=== PATIENT | male | born 1955 | race Caucasian/White ===

== ENCOUNTER 2017-01-09 07:37 | Emergency (ER) | payer MEDICARE, BC ==
[2017-01-09] MEDS ORDERED: KETOROLAC 30 MG/ML 1 ML VIAL IVP STA (08:04)
[2017-01-09] MEDS ORDERED: IPRATROPIUM-ALBUTEROL 3 ML NEB INHALATION STA (08:04)
--- NOTE | 2017-01-09 08:08 | ED ---
Neck Injury/Pain HPI - General Chief Complaint: Neck Pain/Injury Stated Complaint: Neck/back pain Time Seen by Provider: 01/09/17 07:50 Source: patient, family, RN notes reviewed Mode of arrival: wheelchair Limitations: physical limitation - History of Present Illness Initial Comments: This is a 61-year-old male with a history of cervical spinous fusion of C5 6 and 7) approximately 5 months ago who states he had the onset of neck pain about 2 AM this morning. He states he's been coughing he is unsure whether he coughed or twisted when he was in his chair where he sleeps up. He states he has intermittent spasms he states the pain since the surgery hasn't gotten a whole lot better after the first 2 weeks. He does have more motion in his upper extremities however. He denies any new deficits. He states currently the pain is about 5/10 sharp in nature this is what he normally runs daily. He denies any urinary or fecal incontinence any other complaints at this time. He has have a cough he has had some shortness of breath. He still is a smoker he does use CPAP. We did a long conversation regarding smoking cessation lasting 3.1 minutes. MD Complaint: neck pain, other - Related Data Home Medications Medication Instructions Recorded Confirmed DULoxetine HCL [Cymbalta] 30 mg PO DAILY 11/02/16 01/09/17 HYDROcodone/APAP 7.5-325MG [[place] 1 tab PO QID 11/02/16 01/09/17 7.5-325] Lovastatin [Mevacor] 40 mg PO HS 11/02/16 01/09/17 Pantoprazole Sodium [Protonix] 40 mg PO DAILY 11/02/16 01/09/17 Calcium Carbonate [Tums] 1,000 mg PO TID PRN 01/09/17 01/09/17 Fluticasone/Salmeterol [Advair 1 inhalation PO RT-BID 01/09/17 01/09/17 250-50 Diskus] Lisinopril [Zestril] 5 mg PO DAILY 01/09/17 01/09/17 Vitamin E 1,000 unit PO DAILY 01/09/17 01/09/17 Allergies Allergy/AdvReac Type Severity Reaction Status Date / Time Iodinated Contrast Media - Allergy Dyspnea Verified 01/09/17 08:17 Oral and Review of Systems ROS Statement: Those systems with pertinent positive or pertinent negative responses have been documented in the HPI. ROS Other: All systems not noted in ROS Statement are negative. Past Medical History Past Medical History: COPD, Hyperlipidemia, Hypertension Additional Past Medical History / Comment(s): chronic back and neck pain History of Any Multi-Drug Resistant Organisms: None Reported Past Surgical History: Back Surgery Additional Past Surgical History / Comment(s): NECK SURGERY. Past Psychological History: No Psychological Hx Reported Smoking Status: Current every day smoker Past Alcohol Use History: None Reported Past Drug Use History: None Reported General Exam - General Exam Comments Initial Comments: This is a well-developed well-nourished awake alert oriented 3 male Limitations: physical limitation General appearance: alert, in no apparent distress Head exam: Present: atraumatic, normocephalic, normal inspection Eye exam: Present: normal appearance, PERRL, EOMI. Absent: scleral icterus, conjunctival injection, periorbital swelling ENT exam: Present: normal exam, mucous membranes moist Neck exam: Present: normal inspection, other (Somewhat limited range of motion with the patient states this is his normal range). Absent: tenderness, meningismus, lymphadenopathy Respiratory exam: Present: wheezes, decreased breath sounds Cardiovascular Exam: Present: normal rhythm, tachycardia Extremities exam: Present: normal inspection, full ROM, normal capillary refill. Absent: tenderness, pedal edema, joint swelling, calf tenderness Back exam: Present: normal inspection. Absent: tenderness Neurological exam: Present: alert, oriented X3, CN II-XII intact Psychiatric exam: Present: normal affect, normal mood Skin exam: Present: warm, dry, intact, normal color. Absent: rash Course Vital Signs 01/09/17 01/09/17 01/09/17 07:44 08:17 08:25 Temperature 97.5 F L Pulse Rate 102 H 94 94 Respiratory 20 Rate Blood Pressure 106/62 O2 Sat by Pulse 96 Oximetry 01/09/17 09:05 Temperature 98.7 F Pulse Rate 86 Respiratory 18 Rate Blood Pressure 116/58 O2 Sat by Pulse 95 Oximetry Medical Decision Making - Medical Decision Making I did discuss findings with the patient has he is feeling somewhat better he'll be discharged she does have Motrin at home in addition to other pain medication and muscle relaxers he will start these again he is breathing better. - Lab Data Result diagrams: 01/09/17 08:30 01/09/17 08:30 Lab Results 01/09/17 01/09/17 Range/Units 08:30 08:30 WBC 7.9 (3.8-10.6) k/uL RBC 5.23 (4.30-5.90) m/uL Hgb 16.1 (13.0-17.5) gm/dL Hct 48.3 (39.0-53.0) % MCV 92.4 (80.0-100.0) fL MCH 30.7 (25.0-35.0) pg MCHC 33.2 (31.0-37.0) g/dL RDW 13.6 (11.5-15.5) % Plt Count 159 (150-450) k/uL Neutrophils % 80 % Lymphocytes % 10 % Monocytes % 7 % Eosinophils % 2 % Basophils % 0 % Neutrophils # 6.3 (1.3-7.7) k/uL Lymphocytes # 0.8 L (1.0-4.8) k/uL Monocytes # 0.5 (0-1.0) k/uL Eosinophils # 0.1 (0-0.7) k/uL Basophils # 0.0 (0-0.2) k/uL Sodium 139 (137-145) mmol/L Potassium 4.6 (3.5-5.1) mmol/L Chloride 100 (98-107) mmol/L Carbon Dioxide 27 (22-30) mmol/L Anion Gap 12 mmol/L BUN 15 (9-20) mg/dL Creatinine 1.08 (0.66-1.25) mg/dL Est GFR (MDRD) Af Amer >60 (>60 ml/min/1.73 sqM) Est GFR (MDRD) Non-Af >60 (>60 ml/min/1.73 sqM) Glucose 101 H (74-99) mg/dL Calcium 9.3 (8.4-10.2) mg/dL Magnesium 2.0 (1.6-2.3) mg/dL Total Bilirubin 0.7 (0.2-1.3) mg/dL AST 21 (17-59) U/L ALT 28 (21-72) U/L Alkaline Phosphatase 59 (38-126) U/L Total Protein 7.5 (6.3-8.2) g/dL Albumin 4.4 (3.5-5.0) g/dL - Radiology Data Radiology results: report reviewed (Imaging shows no acute findings.), image reviewed Disposition Clinical Impression: Cervical radiculopathy, Bronchospasm, acute Disposition: HOME SELF-CARE Condition: Good Instructions: Cervical Radiculopathy (ED), Bronchospasm (ED), How to Stop Smoking (ED)
[2017-01-09 08:49] LABS: Basophils % (A) 0 %; CH 31.2; CHCM 33.9; Eosinophils # (A) 0.1 k/uL (0-0.7); Eosinophils % (A) 2 %; HCT 48.3 % (39.0-53.0); HDW 2.36; HGB 16.1 gm/dL (13.0-17.5); Luc # (Auto) 0.16; Luc % (Auto) 2; Lymphocytes # (A) 0.8 k/uL (1.0-4.8); Lymphocytes % (A) 10 %; MCH 30.7 pg (25.0-35.0); MCHC 33.2 g/dL (31.0-37.0); MCV 92.4 fL (80.0-100.0); Mean Platelet Volume 8.2; Monocytes # (A) 0.5 k/uL (0-1.0); Monocytes % (A) 7 %; Neutrophils # (A) 6.3 k/uL (1.3-7.7); Neutrophils % (A) 80 %; RBC 5.23 m/uL (4.30-5.90); RDW 13.6 % (11.5-15.5); WBC 7.9 k/uL (3.8-10.6); WBC (Perox) 7.98
[2017-01-09 09:03] LABS: ALT 28 U/L (21-72); AST 21 U/L (17-59); Alkaline Phosphatase 59 U/L (38-126); Anion Gap 12 mmol/L; Blood Urea Nitrogen 15 mg/dL (9-20); Calcium 9.3 mg/dL (8.4-10.2); Carbon Dioxide 27 mmol/L (22-30); Chloride 100 mmol/L (98-107); Glucose 101 mg/dL (74-99); Non-African American GFR(MDRD) >60 (>60 ml/min/1.73 sqM); Potassium 4.6 mmol/L (3.5-5.1); Sodium 139 mmol/L (137-145); Total Bilirubin 0.7 mg/dL (0.2-1.3); Total Protein 7.5 g/dL (6.3-8.2)
--- NOTE | 2017-01-09 09:03 | XR ---
EXAMINATION TYPE: XR cervical spine comp DATE OF EXAM: 01/09/2017 8:51 AM COMPARISON: MRI 04/08/2016. HISTORY: 61-year-old male with pain TECHNIQUE: 6 views FINDINGS: Postsurgical changes of C4-C7 ACDF. Alignment is maintained with moderate disc/endplate degenerative change below the fusion at C7-T1. There appears to be heterotopic ossification posteriorly in the low er neck measuring up to 2.1 cm seen in retrospect on the MRI of 04/08/2016. Uncovertebral joint and facet arthropathy results in moderate bony spondylotic neuroforaminal narrowi ng on the right at C3-C4, C5-C6, and mild on the right at C4-C5 and C6-C7. On the left, no significant bony spondylotic neural foraminal narrowing is seen. Normal odontoid view. IMPRESSION: 1. Postsurgical changes of C4-C7 ACDF. There is disc/endplate degenerative change below the fusion at C7-T1 without malalignment. 2. Heterotopic ossification posteriorly in the lower cervical soft tissues was present in retrospect on the MRI of 04/08/2016. 3. Uncovertebral joint and facet arthropathy causing variable mild to moderate neuroforaminal narrowi ng on the right.
--- NOTE | 2017-01-09 09:04 | XR ---
EXAMINATION TYPE: XR chest 2V DATE OF EXAM: 01/09/2017 8:51 AM COMPARISON: None HISTORY: 61-year-old male with cough TECHNIQUE: PA and lateral views FINDINGS: The cardiomediastinal silhouette, aorta, and pulmonary vasculature are within normal limits. There is hyperinflation with mild interstitial prominence compatible with COPD. Focal opacity at the cardiac apex. No additional consolidation or pleural effusion. IMPRESSION: 1. COPD. 2. Focal opacity at the cardiac apex could represent prominent epicardial fat, lingular atelectasis, or early lingular infiltrate. Follow-up can be performed.
[2017-01-09 09:07] VITALS: TEMP 98.7
[2017-01-09 10:13] VITALS: BP 93/67; PULSE 83; RESP 20
== END 2017-01-09 10:13 | disposition home or self-care (01) ==
LOC: EC 07:37
DX: M54.12 Radiculopathy, cervical region (principal); J98.01 Acute bronchospasm; I10 Essential (primary) hypertension; J44.9 Chronic obstructive pulmonary disease, unspecified; E78.5 Hyperlipidemia, unspecified; F17.200 Nicotine dependence, unspecified, uncomplicated; Z79.51 Long term (current) use of inhaled steroids; Z79.891 Long term (current) use of opiate analgesic; Z79.899 Other long term (current) drug therapy; Z91.041 Radiographic dye allergy status; Z98.890 Other specified postprocedural states
CPT/HCPCS: 99284; 96374; 36415; 94640; 80053; 83735; 85025; 71020; 72050; J1885

== ENCOUNTER 2017-01-09 23:08 | Emergency (ER) | payer MEDICARE, BC ==
[2017-01-10] MEDS ORDERED: IPRATROPIUM-ALBUTEROL 3 ML NEB INHALATION STA (00:03)
[2017-01-10] MEDS ORDERED: methylPREDNISolone SOD SUCCI 125 MG/2 ML VIAL IV STA (00:03)
[2017-01-10] MEDS ORDERED: ONDANSETRON 4 MG/2 ML VIAL IVP STA (00:08)
[2017-01-10] MEDS ORDERED: HYDROmorphone 1 MG/ML 1 ML SYRINGE IVP STA (00:08)
[2017-01-10] MEDS ORDERED: LEVOFLOXACIN 500 MG TAB PO STA (00:13)
--- NOTE | 2017-01-10 01:41 | XR ---
EXAM: XR Lumbar Spine, 2 or 3 Views. CLINICAL HISTORY: Reason: Pain TECHNIQUE: Frontal and lateral views of the lumbar spine. COMPARISON: No relevant prior studies available. FINDINGS: Vertebrae: Mild rightward curvature centered at the L2-3 level. Vertebral body heights and alignment are maintained without acute fracture. Disc spaces: Prior L4-5 posterior pedicle screw and arnaud fusion and interposed disc spacer. There is mild disc space narrowing at L5-S1. Soft tissues: Small amounts of arterial vascular calcification are seen. Tiny focus of increased density anterior to the upper sacrum on the lateral view may be vascular or postsurgical, or even a small amount of retained barium within a colonic diverticulum. IMPRESSION: 1. No acute fracture or compression deformity, nor listhesis. 2. Additional findings include mild lumbar dextroscoliosis, and previous L4-5 posterior fusion, as above.
[2017-01-10 01:43] LABS: ABG HCO3 20 mmol/L (21-25); ABG PCO2 35 mmHg (35-45); ABG PH 7.38 (7.35-7.45); ABG PO2 135 mmHg (83-108)
[2017-01-10 01:44] LABS: ABG Base Excess -4.1 mmol/L; ABG TCO2 21 mmol/L (19-24)
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
[2017-01-10 02:31] VITALS: BP 124/89; PULSE 100; RESP 20; TEMP 98
== END 2017-01-10 02:31 | disposition home or self-care (01) ==
LOC: EC 23:08
DX: J44.1 Chronic obstructive pulmonary disease with (acute) exacerbation (principal); J44.0 Chronic obstructive pulmonary disease with (acute) lower respiratory infection; J45.909 Unspecified asthma, uncomplicated; J18.9 Pneumonia, unspecified organism; G89.4 Chronic pain syndrome; E78.5 Hyperlipidemia, unspecified; I10 Essential (primary) hypertension; F17.200 Nicotine dependence, unspecified, uncomplicated; Z79.51 Long term (current) use of inhaled steroids; Z79.899 Other long term (current) drug therapy; Z79.891 Long term (current) use of opiate analgesic; Z91.041 Radiographic dye allergy status
CPT/HCPCS: 99283 ×2; 96374 ×2; 96375 ×3; 99284; 36415 ×2; 94640 ×2; 36600; 85379; 80053; 82805; 83735; 85025; 87502; 71020; 72050; 72100; J2930; J2405; J1885; J1170

== ENCOUNTER → 2017-01-18 | Outpatient (CLI) | payer MEDICARE, BC ==
--- NOTE | 2017-01-18 16:59 | CT ---
EXAMINATION TYPE: CT chest wo con DATE OF EXAM: 01/18/2017 4:46 PM COMPARISON: NONE HISTORY: Cough, pneumonia, history of COPD. Difficulty breathing. CT DLP: 294.40 mGycm, Automated exposure control for dose reduction was used. CONTRAST: None TECHNIQUE: Axial images were obtained at 5 mm thick sections. Reconstructed images are reviewed on [employer] computer in the coronal plane. FINDINGS: Supraclavicular region appears unremarkable. Subglottic airway is unremarkable. No suspicious lung nodules or focal infiltrates are present. Emphysematous changes are present. No omer spicious infiltrates are evident. Tiny nodules within the lingula measuring 0.5 cm. Series 4 image 25 . A 0.3 cm nodules in the superior segment left lower lobe. Series 4 image 35. No enlarged mediastinal or hilar adenopathy is evident. Few scattered small shotty lymph nodes with in the mediastinum The ascending aorta diameter at the level of the main pulmonary artery is 3.5 cm. The main pulmonary artery diameter at the bifurcation is 1.[address] sections are obtained through the upper abdomen. Abdomen is essentially unremarkable. Smal l hiatal hernia is present. IMPRESSIONS: 1. Couple of small subcentimeter nodules left lung discussed above. Follow-up exam in 6 months is rec ommended to confirm stability. 2. COPD.
== END | disposition home or self-care (01) ==
LOC: RADCTMAIN 16:17
PROVIDERS: ATTEND Internal Medicine Sleep Medicine
DX: R91.8 Other nonspecific abnormal finding of lung field (principal); J44.9 Chronic obstructive pulmonary disease, unspecified; J96.21 Acute and chronic respiratory failure with hypoxia
CPT/HCPCS: 71250

== ENCOUNTER 2017-01-25 22:22 | Inpatient (IN) | payer MEDICARE, BC ==
[2017-01-25] MEDS ORDERED: IPRATROPIUM-ALBUTEROL 3 ML NEB INHALATION STA (22:36)
[2017-01-25] MEDS ORDERED: SODIUM CHLORIDE 0.9% 500 ML IV ONE (22:36)
[2017-01-25 22:51] LABS: Basophils # (A) 0.1 k/uL (0-0.2); Basophils % (A) 1 %; CH 31.1; CHCM 33.3; Eosinophils % (A) 6 %; HCT 46.8 % (39.0-53.0); HDW 2.41; HGB 15.5 gm/dL (13.0-17.5); Luc # (Auto) 0.49; Luc % (Auto) 3; Lymphocytes # (A) 4.1 k/uL (1.0-4.8); Lymphocytes % (A) 28 %; MCH 31.2 pg (25.0-35.0); MCHC 33.2 g/dL (31.0-37.0); Mean Platelet Volume 8.7; Monocytes # (A) 0.8 k/uL (0-1.0); Monocytes % (A) 5 %; Neutrophils # (A) 8.5 k/uL (1.3-7.7); Neutrophils % (A) 57 %; RBC 4.98 m/uL (4.30-5.90); RDW 13.5 % (11.5-15.5); WBC 14.9 k/uL (3.8-10.6); WBC (Perox) 14.46
[2017-01-25 22:59] LABS: ALT 34 U/L (21-72); AST 27 U/L (17-59); Alkaline Phosphatase 54 U/L (38-126); Anion Gap 11 mmol/L; Blood Urea Nitrogen 10 mg/dL (9-20); Calcium 9.1 mg/dL (8.4-10.2); Carbon Dioxide 25 mmol/L (22-30); Chloride 105 mmol/L (98-107); Glucose 112 mg/dL (74-99); Non-African American GFR(MDRD) >60 (>60 ml/min/1.73 sqM); Potassium 4.7 mmol/L (3.5-5.1); Sodium 141 mmol/L (137-145); Total Bilirubin 0.7 mg/dL (0.2-1.3); Total Protein 7.4 g/dL (6.3-8.2)
[2017-01-25 23:00] LABS: Prothrombin Time 10.5 sec (9.0-12.0)
--- NOTE | 2017-01-25 23:02 | ED ---
SOB HPI - General Stated Complaint: LYLE Time Seen by Provider: 01/25/17 22:35 Source: patient, EMS Mode of arrival: EMS Limitations: no limitations - History of Present Illness Initial Comments: This is a 61-year-old male with a history of COPD who presents emergency department for shortness of breath. He states that he is being treated for pneumonia with Levaquin currently. He states that over the last few days he's been having worsening shortness of breath. His been using his inhalers at home without any relief. Today just got to the point where he could not stay home and decided to come emergency department. He denies any chest pain. He does admit to some cough. No lower [place] swelling. No fevers or chills. No other complaints. - Related Data Home Medications Medication Instructions Recorded Confirmed DULoxetine HCL [Cymbalta] 30 mg PO DAILY 11/02/16 01/25/17 HYDROcodone/APAP 7.5-325MG [[place] 1 tab PO QID PRN 11/02/16 01/25/17 7.5-325] Lovastatin [Mevacor] 40 mg PO DAILY 11/02/16 01/25/17 Pantoprazole Sodium [Protonix] 40 mg PO DAILY 11/02/16 01/25/17 Calcium Carbonate [Tums] 1,000 mg PO TID PRN 01/09/17 01/25/17 Fluticasone/Salmeterol [Advair 1 puff INHALATION RT-BID 01/09/17 01/25/17 250-50 Diskus] Lisinopril [Zestril] 5 mg PO DAILY 01/09/17 01/25/17 Vitamin E 1,000 unit PO DAILY 01/09/17 01/25/17 Albuterol Sulfate [Proair Hfa] 2 puff INHALATION RT-QID PRN 01/25/17 01/25/17 Diazepam [Valium] 5 mg PO TID PRN 01/25/17 01/25/17 Fluticasone Nasal [place] [Flonase 2 spr EA NOSTRIL DAILY 01/25/17 01/25/17 Nasal [place]] Previous Rx's Medication Instructions Recorded HYDROmorphone [Dilaudid] 2 mg PO Q8H PRN #15 tab 01/10/17 Levofloxacin [Levaquin] 500 mg PO DAILY #7 tab 01/10/17 Allergies Allergy/AdvReac Type Severity Reaction Status Date / Time Iodinated Contrast Media - Allergy Dyspnea Verified 01/25/17 22:58 Oral and Review of Systems ROS Statement: Those systems with pertinent positive or pertinent negative responses have been documented in the HPI. ROS Other: All systems not noted in ROS Statement are negative. Past Medical History Past Medical History: COPD, Hyperlipidemia, Hypertension Additional Past Medical History / Comment(s): chronic back and neck pain History of Any Multi-Drug Resistant Organisms: None Reported Past Surgical History: Back Surgery Additional Past Surgical History / Comment(s): NECK SURGERY. Past Psychological History: No Psychological Hx Reported Smoking Status: Former smoker Past Alcohol Use History: None Reported Past Drug Use History: None Reported General Exam - General Exam Comments Initial Comments: Constitutional: Awake alert the patient appears in respiratory distress Head: Normocephalic atraumatic Eyes: no conjunctival injection No scleral icterus EOMI Neck: There is some left-sided JVD Supple Heart: Regular rate rhythm normal S1-S2 no murmurs Lungs: There is coarse breath sounds bilaterally with expiratory wheezing, the patient appears to be in respiratory distress with accessory muscle usage No rales Abdomen: Soft nondistended nontender Extremities: Non edematous DP pulses intact Radial pulses intact Neuro: A&Ox3 No focal neurologic deficits Psych: Appropriate mood and affect Limitations: no limitations Course Vital Signs 01/25/17 01/25/17 01/25/17 22:39 22:47 23:06 Temperature 97.0 F L Pulse Rate 126 H 124 H 114 H Respiratory 45 H 30 H Rate Blood Pressure 152/81 137/78 O2 Sat by Pulse 96 96 Oximetry 01/25/17 01/25/17 23:29 23:30 Temperature Pulse Rate 112 H 126 H Respiratory 31 H Rate Blood Pressure 124/92 O2 Sat by Pulse 98 Oximetry - Reevaluation(s) Reevaluation #1: 01/25/17 23:02 EKG showing sinus tachycardia with a rate of 129. No ST segment changes or T- wave inversions. QTC is 468. Other intervals are normal. No ectopy. Medical Decision Making - Medical Decision Making This is a 7-year-old male with history of severe came in for respiratory distress. He is much improved now on BiPAP. Chest x-ray does not show pneumonia. He did have diffuse wheezing on exam arrival and I believe that his symptoms are due to COPD exacerbation. Labwork was reviewed and most unremarkable. He was started on Levaquin. I'm going to admit him to the hospital for steroids and antibiotics and breathing treatments. Patient agrees to this. Dr. Gardner accepts the admission. - Lab Data Result diagrams: 01/25/17 22:30 01/25/17 22:30 Lab Results 01/25/17 01/25/17 01/25/17 Range/Units 22:30 22:30 22:30 WBC 14.9 H (3.8-10.6) k/uL RBC 4.98 (4.30-5.90) m/uL Hgb 15.5 (13.0-17.5) gm/dL Hct 46.8 (39.0-53.0) % MCV 94.0 (80.0-100.0) fL MCH 31.2 (25.0-35.0) pg MCHC 33.2 (31.0-37.0) g/dL RDW 13.5 (11.5-15.5) % Plt Count 209 (150-450) k/uL Neutrophils % 57 % Lymphocytes % 28 % Monocytes % 5 % Eosinophils % 6 % Basophils % 1 % Neutrophils # 8.5 H (1.3-7.7) k/uL Lymphocytes # 4.1 (1.0-4.8) k/uL Monocytes # 0.8 (0-1.0) k/uL Eosinophils # 1.0 H (0-0.7) k/uL Basophils # 0.1 (0-0.2) k/uL PT (9.0-12.0) sec INR (<1.1) APTT (22.0-30.0) sec Sodium 141 (137-145) mmol/L Potassium 4.7 (3.5-5.1) mmol/L Chloride 105 (98-107) mmol/L Carbon Dioxide 25 (22-30) mmol/L Anion Gap 11 mmol/L BUN 10 (9-20) mg/dL Creatinine 1.23 (0.66-1.25) mg/dL Est GFR (MDRD) Af Amer >60 (>60 ml/min/1.73 sqM) Est GFR (MDRD) Non-Af >60 (>60 ml/min/1.73 sqM) Glucose 112 H (74-99) mg/dL Plasma Lactic Acid Jeff 0.9 (0.7-2.0) mmol/L Calcium 9.1 (8.4-10.2) mg/dL Magnesium 2.0 (1.6-2.3) mg/dL Total Bilirubin 0.7 (0.2-1.3) mg/dL AST 27 (17-59) U/L ALT 34 (21-72) U/L Alkaline Phosphatase 54 (38-126) U/L Troponin I (0.000-0.034) ng/mL NT-Pro-B Natriuret Pep pg/mL Total Protein 7.4 (6.3-8.2) g/dL Albumin 4.2 (3.5-5.0) g/dL Influenza Type A RNA (Not Detectd) Influenza Type B (PCR) (Not Detectd) 01/25/17 01/25/17 01/25/17 Range/Units 22:30 22:30 22:30 WBC (3.8-10.6) k/uL RBC (4.30-5.90) m/uL Hgb (13.0-17.5) gm/dL Hct (39.0-53.0) % MCV (80.0-100.0) fL MCH (25.0-35.0) pg MCHC (31.0-37.0) g/dL RDW (11.5-15.5) % Plt Count (150-450) k/uL Neutrophils % % Lymphocytes % % Monocytes % % Eosinophils % % Basophils % % Neutrophils # (1.3-7.7) k/uL Lymphocytes # (1.0-4.8) k/uL Monocytes # (0-1.0) k/uL Eosinophils # (0-0.7) k/uL Basophils # (0-0.2) k/uL PT 10.5 (9.0-12.0) sec INR 1.0 (<1.1) APTT 24.0 (22.0-30.0) sec Sodium (137-145) mmol/L Potassium (3.5-5.1) mmol/L Chloride (98-107) mmol/L Carbon Dioxide (22-30) mmol/L Anion Gap mmol/L BUN (9-20) mg/dL Creatinine (0.66-1.25) mg/dL Est GFR (MDRD) Af Amer (>60 ml/min/1.73 sqM) Est GFR (MDRD) Non-Af (>60 ml/min/1.73 sqM) Glucose (74-99) mg/dL Plasma Lactic Acid Jeff (0.7-2.0) mmol/L Calcium (8.4-10.2) mg/dL Magnesium (1.6-2.3) mg/dL Total Bilirubin (0.2-1.3) mg/dL AST (17-59) U/L ALT (21-72) U/L Alkaline Phosphatase (38-126) U/L Troponin I <0.012 (0.000-0.034) ng/mL NT-Pro-B Natriuret Pep 56 pg/mL Total Protein (6.3-8.2) g/dL Albumin (3.5-5.0) g/dL Influenza Type A RNA (Not Detectd) Influenza Type B (PCR) (Not Detectd) 01/25/17 Range/Units 22:30 WBC (3.8-10.6) k/uL RBC (4.30-5.90) m/uL Hgb (13.0-17.5) gm/dL Hct (39.0-53.0) % MCV (80.0-100.0) fL MCH (25.0-35.0) pg MCHC (31.0-37.0) g/dL RDW (11.5-15.5) % Plt Count (150-450) k/uL Neutrophils % % Lymphocytes % % Monocytes % % Eosinophils % % Basophils % % Neutrophils # (1.3-7.7) k/uL Lymphocytes # (1.0-4.8) k/uL Monocytes # (0-1.0) k/uL Eosinophils # (0-0.7) k/uL Basophils # (0-0.2) k/uL PT (9.0-12.0) sec INR (<1.1) APTT (22.0-30.0) sec Sodium (137-145) mmol/L Potassium (3.5-5.1) mmol/L Chloride (98-107) mmol/L Carbon Dioxide (22-30) mmol/L Anion Gap mmol/L BUN (9-20) mg/dL Creatinine (0.66-1.25) mg/dL Est GFR (MDRD) Af Amer (>60 ml/min/1.73 sqM) Est GFR (MDRD) Non-Af (>60 ml/min/1.73 sqM) Glucose (74-99) mg/dL Plasma Lactic Acid Jeff (0.7-2.0) mmol/L Calcium (8.4-10.2) mg/dL Magnesium (1.6-2.3) mg/dL Total Bilirubin (0.2-1.3) mg/dL AST (17-59) U/L ALT (21-72) U/L Alkaline Phosphatase (38-126) U/L Troponin I (0.000-0.034) ng/mL NT-Pro-B Natriuret Pep pg/mL Total Protein (6.3-8.2) g/dL Albumin (3.5-5.0) g/dL Influenza Type A RNA Not Detected (Not Detectd) Influenza Type B (PCR) Not Detected (Not Detectd) Disposition Clinical Impression: COPD exacerbation Disposition: ADMITTED IP TO THIS HOSP Condition: Stable
[2017-01-25] MEDS ORDERED: LEVOFLOXACIN 750MG-D5W PMX 750 MG in DEXTROSE/WATER 1 150ML.BAG IVPB STA (23:28)
[2017-01-25] MEDS ORDERED: MORPHINE SULFATE 4 MG/ML SYRINGE IVP STA (23:28)
--- NOTE | 2017-01-25 23:45 | XR ---
EXAM: XR Chest, 1 View. CLINICAL HISTORY: Pain. TECHNIQUE: Frontal view of the chest. COMPARISON: CT dated 01/13/2017 and CXR dated 01/09/2017. FINDINGS: Lungs: Hyperlucent and hyperinflated lungs compatible with COPD. Mild basilar atelectasis. Mild prominence of interstitial markings in the mid to lower lungs. No evidence of focal consolidation. Pleural space: No pleural effusion or pneumothorax. Heart: Normal cardiac silhouette size. Mediastinum: No mediastinal widening. Bones/joints: Stable osseous structures. Orthopedic hardware projecting over the lower cervical spine. IMPRESSION: 1. Mild basilar atelectasis and mild prominence of interstitial markings in the mid to lower lungs. No focal consolidation. 2. COPD. 3. No pleural effusion or pneumothorax. 4. Normal cardiac silhouette size.
[2017-01-26] MEDS ORDERED: IPRATROPIUM-ALBUTEROL 3 ML NEB INHALATION PRN ×2 (00:12→20:45)
[2017-01-26 01:44] VITALS: BMI 25.0
[2017-01-26] MEDS: MORPHINE SULFATE 4 MG/ML SYRINGE IVP PRN ×3 (01:48→22:03)
[2017-01-26] MEDS: SODIUM CHLORIDE 0.9% 1,000 ML IV SCH ×3 (01:57→22:01)
[2017-01-26 03:23] LABS: ABG PCO2 44 mmHg (35-45); ABG PH 7.34 (7.35-7.45)
[2017-01-26 03:24] LABS: ABG Base Excess -1.9 mmol/L; ABG HCO3 23 mmol/L (21-25); ABG PO2 87 mmHg (83-108); ABG TCO2 24 mmol/L (19-24)
[2017-01-26] MEDS: methylPREDNISolone SOD SUCCI 125 MG/2 ML VIAL IV SCH ×2 (06:28→11:58)
[2017-01-26] MEDS: SYMBICORT 80-4.5 MCG INHALER INHALATION SCH ×2 (08:35→20:31)
[2017-01-26] MEDS: PANTOPRAZOLE 40 MG TABLET PO SCH (09:00)
[2017-01-26] MEDS: ATORVASTATIN 10 MG TAB PO SCH (09:00)
[2017-01-26] MEDS: LISINOPRIL 5 MG TAB PO SCH (09:00)
[2017-01-26] MEDS: DULoxetine HCL 30 MG CAPSULE.DR PO SCH (09:00)
[2017-01-26] MEDS ORDERED: HYDROmorphone 2 MG TAB PO PRN (10:38)
[2017-01-26] MEDS ORDERED: HYDROcodone/APAP 7.5-325MG 1 EACH TAB PO PRN (10:38)
[2017-01-26] MEDS ORDERED: DIAZEPAM 5 MG TAB PO PRN (10:38)
[2017-01-26] MEDS: IPRATROPIUM-ALBUTEROL 3 ML NEB INHALATION SCH ×3 (11:34→20:31)
[2017-01-26] MEDS: BACLOFEN 10 MG TAB PO SCH ×3 (15:51→22:30)
[2017-01-26] MEDS: HYDROcodone/APAP 5-325MG 1 EACH TAB PO SCH ×2 (15:52→19:18)
--- NOTE | 2017-01-26 16:29 | HP ---
DATE OF ADMISSION: 01/26/2017 PRESENTING COMPLAINT: Short of breath. HISTORY OF PRESENTING COMPLAINT: Pleasant 61-year-old patient of Dr. Alcantara, whose chronic stable medical conditions include hypertension, hyperlipidemia, anxiety. The patient had cervical spine and lower back surgery quite some time ago and keeps getting spasms of back pain. When he gets that he becomes more and more short of breath and wheezing. Patient additionally at the same time until about two weeks had been smoking. Also presents with worsening short of breath, wheezing, slight cough. No fever. Appetite is preserved. is at the bedside. With breathing treatments patient does feel better. Patient's getting about is limited. Has been sitting up in a chair. Cervical spine surgery was done was about 5 weeks and h has been pretty much been sitting up in a chair, because of back spasms. REVIEW OF SYSTEMS: CONSTITUTIONAL: Tired. HEENT: None. RESPIRATORY: As above. CARDIOVASCULAR: None. GASTROINTESTINAL: None. GENITOURINARY: None. MUSCULOSKELETAL: Pain in the neck and lower back. DERMATOLOGICAL: None. HEMATOLOGICAL: None. LYMPHATIC: None. PSYCHIATRY: Anxiety. NEUROLOGICAL: Spasms. Past medical history of COPD, hypertension, hyperlipidemia, back pain, anxiety. PAST SURGICAL HISTORY: Neck surgery, lower back surgery. SOCIAL HISTORY: Smoked a pack a day for close to 40 years, smoked more than that up to 3 weeks ago. Patient is not working anymore. . FAMILY HISTORY: Patient is adopted. HOME MEDICATIONS: 1. Vitamin E 1000 units a day. 2. Protonix 40 mg a day. 3. Mevacor 40 mg a day. 4. Zestril 5 mg a day. 5. Levaquin 500 mg a day. 6. Dilaudid 2 mg q.8 p.r.n. 7. [place]aview 7.5, 1 tablets q.i.d. p.r.n. 8. Advair 250/50, 1 puff b.i.d. 9. Flonase 2 sprays each nostril daily. 10. Valium 5 mg p.o. daily p.r.n. 11. Cymbalta 100 mg p.o. daily. 12. TUMs 1000 mg p.o. t.i.d. p.r.n. 13. ProAir 2 puffs q.i.d. p.r.n. ALLERGIES TO IV CONTRAST DYE. On examination: Vital signs on presentation: Temperature 97, pulse 126, respirations 45, blood pressure 150/81, pulse ox 96% on 3-L. GENERAL APPEARANCE: Average build, sitting up. Anxious -appearing. EYES: Pupils equal. Conjunctivae normal. HEENT: Oral cavity normal. NECK: JVD not raised. Mass not palpable. RESPIRATORY: Effort increased. LUNGS: Diminished breath sounds. Prolonged expiration wheezing. CARDIOVASCULAR: First and second sounds normal. No edema. ABDOMEN: Soft, nontender. Liver and spleen not palpable. LYMPHATIC: No lymph node palpable in neck or axillae. PSYCHIATRY: Alert and oriented x3. Mood and affect normal. NEUROLOGICAL: Pupils equal. Cranial nerves grossly intact. Power and sensation grossly intact. INVESTIGATIONS: White count 14.9, hemoglobin 13.5. Potassium 4.7, BUN and creatinine are normal. Influenza is negative. EKG: Sinus tachycardia with poor tracing. Chest x-ray shows hyperinflation, prominent pulmonary arteries, some chronic changes. ASSESSMENT: 1. Acute severe chronic obstructive pulmonary disease exacerbation in a smoker. 2. Chronic nicotine dependence. Patient active cigarette smoker, trying to quit. 3. Severe muscle spasms from spinal surgery and uncontrolled pain. 4. Anxiety, not otherwise specified. 5. Hyperlipidemia. 6. Essential hypertension. PLAN: Patient is put on nebulized bronchodilators, IV steroids. For better pain control will put the patient on baclofen 5 mg q.i.d., naproxen 500 mg b.i.d. and also Seaview 5 around the clock. Care was discussed with the patient and in detail about the importance of smoking sensation. Given nicotine patch. Patient also told about pulmonary toileting and pulmonary rehab. Care was discussed in detail with patient's .
[2017-01-26] MEDS ORDERED: CALCIUM CARBONATE 500 MG CHEWABLE PO PRN (18:35)
[2017-01-26] MEDS: NAPROXEN 250 MG TAB PO SCH ×2 (19:13→22:31)
[2017-01-26] MEDS: LEVOFLOXACIN 500 MG TAB PO SCH (22:00)
[2017-01-26] MEDS: methylPREDNISolone SOD SUCCI 40 MG/ML 1 ML VIAL IV SCH (23:50)
[2017-01-27] MEDS: HYDROcodone/APAP 5-325MG 1 EACH TAB PO SCH ×5 (03:31→23:19)
[2017-01-27] MEDS: SODIUM CHLORIDE 0.9% 1,000 ML IV SCH (06:29)
[2017-01-27] MEDS: methylPREDNISolone SOD SUCCI 40 MG/ML 1 ML VIAL IV SCH ×3 (08:01→23:20)
[2017-01-27] MEDS: ATORVASTATIN 10 MG TAB PO SCH (08:01)
[2017-01-27] MEDS: LISINOPRIL 5 MG TAB PO SCH (08:02)
[2017-01-27] MEDS: DULoxetine HCL 30 MG CAPSULE.DR PO SCH (08:02)
[2017-01-27] MEDS: BACLOFEN 10 MG TAB PO SCH ×4 (08:02→21:14)
[2017-01-27] MEDS: NAPROXEN 250 MG TAB PO SCH ×2 (08:02→21:13)
[2017-01-27] MEDS: PANTOPRAZOLE 40 MG TABLET PO SCH (08:03)
[2017-01-27] MEDS: SYMBICORT 80-4.5 MCG INHALER INHALATION SCH ×2 (08:24→21:11)
[2017-01-27] MEDS: IPRATROPIUM-ALBUTEROL 3 ML NEB INHALATION SCH ×4 (08:24→21:11)
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
[2017-01-27] MEDS: HYDROcodone/APAP 5-325MG 1 EACH TAB PO PRN ×2 (16:23→21:14)
--- NOTE | 2017-01-27 17:26 | PN ---
DATE OF SERVICE: 01/27/2017 INTERVAL HISTORY: Mr. Sosa is a 61-year-old patient with past medical history of hypertension, hyperlipidemia, coming in with a chief complaint of difficulty in breathing when he has some muscle spasms. The patient states that he has had cervical spine and low back surgery sometime back and since then has spasms of his neck and back and when he has the spasms he has difficulty in breathing and so he came in to the hospital for further evaluation. Patient has been evaluated by pulmonary services and he has been started on breathing treatments and steroids showed significant improvement in his breathing, but the main concern is that his spasms aggravate his difficulty in breathing so the patient has been started on baclofen and he states that it showed significant improvement in his spasm as well as breathing. REVIEW OF SYSTEMS: CONSTITUTIONAL: Denies having fever, chills, or rigors. RESPIRATORY: No cough. No difficulty in breathing. CARDIAC: No chest pain, no palpitations. GI: No abdominal pain, nausea, vomiting, or diarrhea. Patient's medications have been reviewed. He is on [place], albuterol, Lipitor, baclofen, Symbicort, Cymbalta, levofloxacin, Zestril, Solu-Medrol, morphine and Protonix. On examination, patient's vital signs: Temperature 96.1, heart rate 84, respiratory rate 20, blood pressure 118/74, saturating at 90% on room air. GENERAL EXAMINATION: Patient appears to be no acute distress. He keeps talking about his spasms and that his Baclofen has been helping him. EYES: Pupils round and reactive. No pallor. No icterus. NECK: No JVD. No thyromegaly. CARDIOVASCULAR: S1, S2 heard. RESPIRATORY: Bilateral breath sounds are positive. No wheezes or crackles. GI: Abdomen is soft, nontender. Bowel sounds positive. EXTREMITIES: No edema. No cyanosis, no clubbing. ROTARY DRIER: Alert, awake, oriented x3. PSYCHIATRIC: Appropriate mood and affect. MUSCULOSKELETAL: No joint swellings or deformities. The patient has history of scoliosis, status post back surgery done few weeks back. Patient's labs: No new labs from this morning. Labs from yesterday within normal limits. ASSESSMENT AND PLAN: 1. Acute exacerbation of chronic obstructive pulmonary disease. 2. Severe muscle spasms, status post spinal surgery and uncontrolled pain. 3. Chronic nicotine dependence. 4. Anxiety. 5. Hyperlipidemia. 6. Essential hypertension. 7. History of scoliosis. 8. Chronic neck pain. 9. Chronic low back pain. 10. History of sleep apnea on CPAP at night. PLAN: The plan is to continue the patient on bronchodilators, IV steroids. Patient has been on Levaquin due to his recent history of having pneumonia, so we will continue with it for now and continue with the current pain management and baclofen for his muscle spasms. The treatment care plan was discussed in detail with the patient and his who is at the bedside. NADIR
[2017-01-27] MEDS: LEVOFLOXACIN 500 MG TAB PO SCH (21:14)
[2017-01-28] MEDS: MORPHINE SULFATE 4 MG/ML SYRINGE IVP PRN (01:47)
[2017-01-28] MEDS: HYDROcodone/APAP 5-325MG 1 EACH TAB PO SCH ×4 (05:27→23:16)
[2017-01-28 06:26] LABS: Basophils % (A) 0 %; CH 30.5; CHCM 33.3; Eosinophils % (A) 0 %; HCT 40.8 % (39.0-53.0); HDW 2.32; HGB 13.6 gm/dL (13.0-17.5); Luc % (Auto) 1; Lymphocytes # (A) 0.9 k/uL (1.0-4.8); Lymphocytes % (A) 6 %; MCH 30.6 pg (25.0-35.0); MCHC 33.3 g/dL (31.0-37.0); MCV 92.1 fL (80.0-100.0); Mean Platelet Volume 7.9; Monocytes # (A) 0.4 k/uL (0-1.0); Monocytes % (A) 3 %; Neutrophils # (A) 13.7 k/uL (1.3-7.7); Neutrophils % (A) 91 %; RBC 4.43 m/uL (4.30-5.90); RDW 13.5 % (11.5-15.5); WBC 15.1 k/uL (3.8-10.6); WBC (Perox) 14.86
[2017-01-28 06:42] LABS: Anion Gap 9 mmol/L; Blood Urea Nitrogen 22 mg/dL (9-20); Calcium 9.7 mg/dL (8.4-10.2); Carbon Dioxide 28 mmol/L (22-30); Chloride 101 mmol/L (98-107); Glucose 112 mg/dL (74-99); Non-African American GFR(MDRD) >60 (>60 ml/min/1.73 sqM); Potassium 4.5 mmol/L (3.5-5.1); Sodium 138 mmol/L (137-145)
[2017-01-28] MEDS: ATORVASTATIN 10 MG TAB PO SCH (08:39)
[2017-01-28] MEDS: PANTOPRAZOLE 40 MG TABLET PO SCH (08:39)
[2017-01-28] MEDS: LISINOPRIL 5 MG TAB PO SCH (08:40)
[2017-01-28] MEDS: DULoxetine HCL 30 MG CAPSULE.DR PO SCH (08:40)
[2017-01-28] MEDS: NAPROXEN 250 MG TAB PO SCH ×2 (08:40→21:53)
[2017-01-28] MEDS: BACLOFEN 10 MG TAB PO SCH ×4 (08:41→21:55)
[2017-01-28] MEDS: methylPREDNISolone SOD SUCCI 40 MG/ML 1 ML VIAL IV SCH ×3 (08:43→23:17)
[2017-01-28] MEDS: IPRATROPIUM-ALBUTEROL 3 ML NEB INHALATION SCH ×4 (08:48→19:29)
[2017-01-28] MEDS: SYMBICORT 80-4.5 MCG INHALER INHALATION SCH ×2 (08:48→19:27)
[2017-01-28] MEDS: HYDROcodone/APAP 5-325MG 1 EACH TAB PO PRN (08:51)
--- NOTE | 2017-01-28 12:05 | P.PN ---
Subjective 61-year-old male patient with known history of COPD and obstructive sleep apnea who is coming in for worsening shortness of breath. The patient also has chronic neck and back pain. He was having excessive cramping of his neck and upper chest area which contributed to his shortness of breath. He had no chest pain. No cough or sputum production. No fever chills or night sweats. No angina. No swelling in lower extremities. Chest x-ray is consistent with COPD. CAT scan of the chest that was done approximately 10 days ago showed some nonspecific pulmonary nodules which are essentially noncancer. They need to be further followed up. Specifically, there are couple of small subcentimeter rug layer on the left the largest measuring 5 mm in size and the lingula and other smaller nodules and it appears segment of the left lower lobe without any significant mediastinal lymphadenopathy. Clinically the patient is doing better. He is currently on bronchodilators and systemic steroids and IV Solu Medrol has been tapered down to 40 mg every 8 hours. He is on Advair as maintenance on outpatient basis in addition to Ventolin rescue inhaler when necessary. On 01/28/2017, the patient is less short of breath. His emanating in the hallway. His COPD exacerbation is slowly improving. No chest pain. No angina. No swelling lower extremities. No other complaints otherwise for now. The patient remains on DuoNeb neb last treatment [id number] in addition to IV Solu-Medrol. As it has been his outpatient maintenance medication regarding his COPD. Objective - Vital Signs Vital signs: Vital Signs Temp 97.2 F L 01/28/17 08:00 Pulse 84 01/28/17 11:53 Resp 18 01/28/17 08:00 BP 90/53 01/28/17 08:00 Pulse Ox 93 L 01/28/17 08:00 Intake & Output 01/27/17 01/28/17 01/28/17 18:59 06:59 18:59 Intake Total 600 240 Balance 600 240 Weight 78 kg Intake: Oral 600 240 Other: Voiding Method Urinal Toilet Toilet Urinal Urinal # Voids 1 2 1 - Exam Head exam was generally normal. There was no scleral icterus or corneal arcus. Mucous membranes were moist.Neck was supple and without jugular venous distension, thyromegaly, or carotid bruits. Carotids were easily palpable bilaterally. There was no adenopathy.lung sounds are diminished bilaterally along with that there is scattered expiratory wheezes throughout the lung bridges and some prolongation of expiratory phase of breathing.Cardiac exam revealed the PMI to be normally situated and sized. The rhythm was regular and no extrasystoles were noted during several minutes of auscultation. The first and second heart sounds were normal and physiologic splitting of the second heart sound was noted. There were no murmurs, rubs, clicks, or gallops.Abdominal exam revealed normal bowel sounds. The abdomen was soft, non- tender, and without masses, organomegaly, or appreciable enlargement of the abdominal aorta.Examination of the extremities revealed easily palpable radial, femoral and pedal pulses. There was no cyanosis, clubbing or edema. - Labs CBC & Chem 7: 01/28/17 05:44 01/28/17 05:44 Labs: Abnormal Lab Results - Last 24 Hours (Table) 01/28/17 01/28/17 Range/Units 05:44 05:44 WBC 15.1 H (3.8-10.6) k/uL Neutrophils # 13.7 H (1.3-7.7) k/uL Lymphocytes # 0.9 L (1.0-4.8) k/uL BUN 22 H (9-20) mg/dL Glucose 112 H (74-99) mg/dL Assessment and Plan Plan: Assessment 1 acute COPD exacerbation, chest x-rays clear of any acute pulmonary filtration. Patient shortness of breath is improving 2 obstructive sleep apnea with an AHI of 11 and currently on a CPAP pressure base of the supportive 3 chronic neck pain with cramping, status post cervical spine fusion 4 chronic back pain 5 hypertension 6 hyperlipidemia 7 depression 8. Lumbar kyphoscoliosis. 9 pulmonary nodules, subcentimeter, nonspecific involving the lingula and this appears segment of the left lower lobe. Unlikely to be malignant. Plan On 01/28/2017, the patient is being seen in follow-up. He is slowly improving. I would suggest getting the same treatment for another 24 hours. May start tapering the steroids further as of tomorrow. Ambulate in the hallway. No other changes otherwise.
[2017-01-28] MEDS: LEVOFLOXACIN 500 MG TAB PO SCH (21:55)
[2017-01-29] MEDS: HYDROcodone/APAP 5-325MG 1 EACH TAB PO PRN (02:51)
[2017-01-29] MEDS ORDERED: DOCUSATE 100 MG CAP PO PRN (04:35)
[2017-01-29] MEDS: HYDROcodone/APAP 5-325MG 1 EACH TAB PO SCH ×2 (06:08→11:33)
[2017-01-29] MEDS: methylPREDNISolone SOD SUCCI 40 MG/ML 1 ML VIAL IV SCH (08:42)
[2017-01-29] MEDS: NAPROXEN 250 MG TAB PO SCH (08:42)
[2017-01-29] MEDS: BACLOFEN 10 MG TAB PO SCH (08:43)
[2017-01-29] MEDS: LISINOPRIL 5 MG TAB PO SCH (08:44)
[2017-01-29] MEDS: DULoxetine HCL 30 MG CAPSULE.DR PO SCH (08:45)
[2017-01-29] MEDS: ATORVASTATIN 10 MG TAB PO SCH (08:45)
[2017-01-29] MEDS: PANTOPRAZOLE 40 MG TABLET PO SCH (08:45)
[2017-01-29] MEDS: IPRATROPIUM-ALBUTEROL 3 ML NEB INHALATION SCH ×2 (09:12→12:33)
[2017-01-29] MEDS: SYMBICORT 80-4.5 MCG INHALER INHALATION SCH (09:12)
[2017-01-29 10:11] VITALS: RESP 18
[2017-01-29 14:09] VITALS: BP 147/94; PULSE 93; TEMP 97.5
--- NOTE | 2017-01-29 15:00 | PN ---
DATE OF SERVICE: 01/28/2017 Mr. Sosa is a 61-year-old patient with a past medical history of hypertension, hyperlipidemia, coming in with a chief complaint of difficulty in breathing. The patient does have some muscle spasms which really make it hard for him to breathe. He recently had cervical spine and low back surgery done. Patient has been started on Baclofen with some improvement in muscle spasms. He is on breathing treatments and IV Solu-Medrol for exacerbation of his chronic obstructive pulmonary disease. Today the patient states that his muscle spasms have improved and difficulty in breathing has improved. REVIEW OF SYSTEMS: CONSTITUTIONAL: No fevers, chills, or rigors. CARDIAC: No chest pain, difficulty in breathing has improved. No abdominal pain, nausea, vomiting, or diarrhea. No dysuria or hematuria. The patient's medications have been reviewed. On examination, patient's vital signs temperature 97, heart rate 80, respiratory rate 18, blood pressure 121/74, saturating at 93% on room air. GENERAL EXAMINATION: Patient appears to be no acute distress. EYES: Pupils equal, round, and reactive to light. HEAD: Atraumatic, normocephalic. NECK: No JVD. No thyromegaly. CARDIOVASCULAR: S1, S2 heard. RESPIRATORY: Bilateral breath sounds are positive. No wheezes or crackles but the breath sounds are decreased in all lung bridges. GI: Abdomen is soft, nontender. Bowel sounds positive. EXTREMITIES: No edema. No cyanosis, no clubbing. ADJUNCT PROFESSOR OF VOICE: Alert, awake, oriented x3. PSYCHIATRIC: Appropriate mood and affect. MUSCULOSKELETAL: No joint swellings. The patient does have history of scoliosis status post back surgery done a few weeks back. Patient's labs: White count of 15.1, hemoglobin is 13.6, platelets of 199. Sodium 138, potassium 4.5, chloride 101, bicarb 28, BUN 22, creatinine 1.03. ASSESSMENT AND PLAN: 1. Acute exacerbation of chronic obstructive pulmonary disease. 2. Severe muscle spasms, status post spinal surgery and uncontrolled pain. 3. Chronic nicotine dependence. 4. Anxiety. 5. Hypertension. 6. Hyperlipidemia. 7. History of scoliosis. 8. Chronic neck pain. 9. Chronic low back pain. 10. History of sleep apnea, on CPAP at night. PLAN: The plan is to continue the patient on IV steroids, bronchodilators and continue with IV Levaquin for his recent history of pneumonia. Continue with the current pain management and baclofen for muscle spasms and further recommendations depending on the progress of the patient. NADIR
--- NOTE | 2017-01-29 15:11 | P.PN ---
Subjective Principal diagnosis: Acute exacerbation of COPD 61-year-old male patient with known history of COPD and obstructive sleep apnea who is coming in for worsening shortness of breath. The patient also has chronic neck and back pain. He was having excessive cramping of his neck and upper chest area which contributed to his shortness of breath. He had no chest pain. No cough or sputum production. No fever chills or night sweats. No angina. No swelling in lower extremities. Chest x-ray is consistent with COPD. CAT scan of the chest that was done approximately 10 days ago showed some nonspecific pulmonary nodules which are essentially noncancer. They need to be further followed up. Specifically, there are couple of small subcentimeter supervisor diagnostic on the left the largest measuring 5 mm in size and the lingula and other smaller nodules and it appears segment of the left lower lobe without any significant mediastinal lymphadenopathy. Clinically the patient is doing better. He is currently on bronchodilators and systemic steroids and IV Solu Medrol has been tapered down to 40 mg every 8 hours. He is on Advair as maintenance on outpatient basis in addition to Ventolin rescue inhaler when necessary. On 01/28/2017, the patient is less short of breath. His emanating in the hallway. His COPD exacerbation is slowly improving. No chest pain. No angina. No swelling lower extremities. No other complaints otherwise for now. The patient remains on DuoNeb neb last treatment [id number] in addition to IV Solu-Medrol. As it has been his outpatient maintenance medication regarding his COPD. Patient was reevaluated today on 01/29/2017, doing relatively well, continues to have these intermittent episodes of shortness of breath, patient describes tightness in the neck region, and I explained to him that in the future he may have to be bronchoscoped and this could be done on outpatient basis. Was seen in the past by many ENT physicians, and no specific recommendation was made. Today the patient is feeling better breathing easier, and I believe discharge planning is in progress. Patient was given the option to follow-up with Dr. Gonzalez or follow-up with Dr. Ibanez who has seen him in the past, but the patient prefers to see Dr. Gonzalez, does not want to go back and see Dr. Ibanez in the future. Objective - Vital Signs Vital signs: Vital Signs Temp 97.5 F L 01/29/17 12:00 Pulse 96 01/29/17 12:47 Resp 18 01/29/17 12:00 BP 147/94 01/29/17 12:00 Pulse Ox 92 L 01/29/17 12:00 Intake & Output 01/28/17 01/29/17 01/29/17 18:59 06:59 18:59 Intake Total 480 150 300 Output Total 0 Balance 480 150 300 Weight 78 kg 77.6 kg Intake: Oral 480 150 300 Output: Stool 0 Other: Voiding Method Toilet Toilet Urinal Urinal # Voids 2 2 - Exam Head exam was generally normal. There was no scleral icterus or corneal arcus. Mucous membranes were moist.Neck was supple and without jugular venous distension, thyromegaly, or carotid bruits. Carotids were easily palpable bilaterally. There was no adenopathy.lung sounds are diminished bilaterally along with that there is scattered expiratory wheezes throughout the lung bridges and some prolongation of expiratory phase of breathing.Cardiac exam revealed the PMI to be normally situated and sized. The rhythm was regular and no extrasystoles were noted during several minutes of auscultation. The first and second heart sounds were normal and physiologic splitting of the second heart sound was noted. There were no murmurs, rubs, clicks, or gallops.Abdominal exam revealed normal bowel sounds. The abdomen was soft, non- tender, and without masses, organomegaly, or appreciable enlargement of the abdominal aorta.Examination of the extremities revealed easily palpable radial, femoral and pedal pulses. There was no cyanosis, clubbing or edema. - Labs CBC & Chem 7: 01/28/17 05:44 01/28/17 05:44 Assessment and Plan Plan: 1 acute COPD exacerbation, chest x-rays clear of any acute pulmonary filtration. Patient shortness of breath is improving 2 obstructive sleep apnea with an AHI of 11 and currently on a CPAP pressure base of the supportive 3 chronic neck pain with cramping, status post cervical spine fusion 4 chronic back pain 5 hypertension 6 hyperlipidemia 7 depression 8. Lumbar kyphoscoliosis. 9 pulmonary nodules, subcentimeter, nonspecific involving the lingula and this appears segment of the left lower lobe. Unlikely to be malignant. Recommendation: Continue present meds, agree with discharge planning today, follow-up with Dr. Gonzalez on outpatient basis. Time with Patient: Less than 30
--- NOTE | 2017-02-27 09:52 | DS ---
DATE OF ADMISSION: 01/26/2017 DATE OF DISCHARGE: 01/29/2017 DATE OF SERVICE: 01/29/2017 HOSPITAL COURSE: Mr. Sosa is a 61-year-old patient with a past medical history of hypertension, hyperlipidemia admitted to the hospital with a chief complaint of difficulty in breathing. The patient had muscle spasms and that makes it really hard for him to breathe. The patient recently had a cervical and lower back surgery done after which he started to have the severe muscle spasms starting down from the neck, which was making it difficult to breathe. Eventually, the patient was given breathing treatments, started on baclofen after which his muscle spasms did improve. He was also started on Levaquin for his recent history of pneumonia. He was taking Levaquin at home and we continued on it. He was given IV steroids as he was wheezing at the time of admission. Patient's symptoms did improve with breathing treatments, IV steroids and antibiotics and he has been cleared by pulmonary, Dr. Velez, to be discharged to home today. So he is being discharged. PATIENT'S DISCHARGE DIAGNOSES: 1. Acute exacerbation of chronic obstructive pulmonary disease. 2. Severe muscle spasm, status post spinal surgery and uncontrolled pain. 3. Chronic nicotine dependence. 4. Anxiety. 5. Hypertension. 6. Hyperlipidemia. 7. History of scoliosis. 8. Chronic neck pain. 9. Chronic low back pain. 10. History of sleep apnea on CPAP. PATIENT'S DISCHARGE MEDICATIONS: 1. Cymbalta 30 mg p.o. daily. 2. [place] 7.5/325 one tablet 4 times a day p.r.n. for pain. 3. Lovastatin 40 mg p.o. daily. 4. Pantoprazole 40 mg p.o. daily. 5. Calcium carbonate 1000 mg p.o. 3 times a day p.r.n. for epigastric pain. 6. Advair 50/50 Diskus 1 puff b.i.d. 7. Lisinopril 5 mg p.o. daily. 8. Vitamin E 1000 units p.o. daily. 9. Albuterol 2 puffs p.r.n. for shortness of breath. 10. Valium 5 mg p.o. q.6 hours p.r.n. for muscle spasms. 12. Vitamin D2, 50,000 units once a week 13. Magnesium oxide 1 tablet p.o. daily. The patient is being discharged home in a stable condition to be followed with Dr. Carrero and he was given a follow-up appointment on 02/20/2017 at 2:30 p.m. Follow up also with Dr. Jamir Alcantara and pulmonary, Dr. Gonzalez to be followed in 2 weeks. [facility] CENTERAlfredo
== END 2017-01-29 15:50 | disposition home or self-care (01) | DRG 192 ==
LOC: EC 22:22 → 6SEL 01-26 00:17
PROVIDERS: ADMIT Hospitalist; ATTEND Hospitalist
DX: J44.1 Chronic obstructive pulmonary disease with (acute) exacerbation (principal); M41.9 Scoliosis, unspecified; I10 Essential (primary) hypertension; F32.9 Major depressive disorder, single episode, unspecified; E78.5 Hyperlipidemia, unspecified; F41.9 Anxiety disorder, unspecified; G47.33 Obstructive sleep apnea (adult) (pediatric); G89.29 Other chronic pain; M54.2 Cervicalgia; M54.5 Low back pain; M62.838 Other muscle spasm; K63.5 Polyp of colon; F17.200 Nicotine dependence, unspecified, uncomplicated; Z79.899 Other long term (current) drug therapy; Z98.1 Arthrodesis status; Z91.041 Radiographic dye allergy status
CPT/HCPCS: 36415; 36600; 71010; 80048; 80053; 82805; 83605; 83735; 83880; 84484; 85025; 85610; 85730; 87040; 87502; 93005; 94640; 94660; 94760; 96361; 96365; 96375; 99285

== ENCOUNTER → 2017-02-14 | Outpatient (CLI) | payer MEDICARE, BC ==
--- NOTE | 2017-02-15 09:36 | MR ---
EXAMINATION TYPE: MR cspine wow/ con DATE OF EXAM: 02/14/2017 10:17 PM COMPARISON: 04/08/2016 HISTORY: Cervical and Lumbar Surgery / severe pain with Spasms TECHNIQUE: T1 sagittal and coronal, T2 sagittal, and gradient echo axial views of the cervical spine are submitted. FINDINGS: The cranial cervical junction is preserved. There is no abnormal signal seen within the sp inal cord or paraspinal soft tissues. There is postsurgical change involving levels C4-C7 with artifact compatible with anterior fixation. At C2-3 there is no disc herniation or canal stenosis. Mild to moderate uncovertebral joint hypertrop hy on the left but no significant foraminal encroachment. At C3-4 there is degenerative disc disease and facet arthropathy. There is bilateral uncovertebral rojas int hypertrophy greater on the right with findings compatible with mild to moderate right-sided ye inal encroachment At C4-5 there is postsurgical change with no disc herniation or canal stenosis. Uncovertebral joint r esults in mild right-sided foraminal encroachment At C5-6 there is postsurgical change with no disc herniation or canal stenosis. Mild right-sided fora esme encroachment. At C6-7 there is right paracentral and lateral disc osteophyte complex moderate right-sided foraminal encroachment. No Canal stenosis. Postsurgical changes noted. At C7-T1 there is severe degenerative disc disease. Right paracentral disc bulging capped by spur wit h uncovertebral joint hypertrophy results in mild to moderate right-sided foraminal encroachment. IMPRESSION: 1. Extensive postsurgical change with predominantly spurring seen and hypertrophic change of the unc overtebral joints result in multilevel predominantly right-sided foraminal encroachment as discussed above. No Canal stenosis. EXAMINATION TYPE: MR thoracic spine wow/ con DATE OF EXAM: 02/14/2017 10:17 PM COMPARISON: NONE HISTORY: severe pain with Spasms CONTRAST: Standard multiplanar, multisequence MRI departmental protocol utilizing 15 mL intravenous MultiHance gadolinium contrast. FINDINGS: There is a's curvature of the spine. Alignment is anatomic. Assessment spinal cord somewhat limited due to motion artifact. Grossly no abnormal signal identified . There is mild loss of disc space at multiple levels. There are no compression deformities. T2-T3 there is left paracentral disc bulging but no spinal cord contact or canal stenosis. Mild left- sided foraminal encroachment At T3-T4 there is very mild left paracentral disc bulging no Canal stenosis. Mild left-sided T12-L1 there is a small focal right paracentral disc herniation. Mild effacement of thecal sac but no canal stenosis or foraminal encroachment. Facet arthropathy noted. There is artifact involving the aorta. No abnormal enhancement. Vertebral body hemangioma T6 noted. Remaining levels demonstrate no disc herniation or canal stenosis. Neural foramina patent. IMPRESSION: 1. Small right paracentral disc herniation T12-L1 with mild effacement of thecal sac but no canal luis nosis or foraminal encroachment. 2. Mild disc bulging left paracentrally C2-3 and T3-4 with no canal stenosis. Mild foraminal encroach ment on the left. 3. Scoliotic curvature with multilevel mild degenerative disc disease.
== END | disposition home or self-care (01) ==
LOC: RADMRIMAIN 20:48
PROVIDERS: ATTEND Internal Medicine
DX: M50.30 Other cervical disc degeneration, unspecified cervical region (principal); M51.25 Other intervertebral disc displacement, thoracolumbar region; M41.9 Scoliosis, unspecified
CPT/HCPCS: 72156; 72157; A9577

== ENCOUNTER → 2017-02-20 | Outpatient (CLI) | payer MEDICARE, BC ==
[2017-02-20 16:36] VITALS: BP 107/74; PULSE 86; RESP 18; TEMP 97.7
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
== END | disposition home or self-care (01) ==
LOC: PNWHC3 14:41
PROVIDERS: ATTEND Specialist
DX: M50.20 Other cervical disc displacement, unspecified cervical region (principal); M47.816 Spondylosis without myelopathy or radiculopathy, lumbar region; G89.29 Other chronic pain; J44.9 Chronic obstructive pulmonary disease, unspecified; E78.5 Hyperlipidemia, unspecified; I10 Essential (primary) hypertension; Z79.891 Long term (current) use of opiate analgesic; Z79.51 Long term (current) use of inhaled steroids; Z79.899 Other long term (current) drug therapy; Z87.891 Personal history of nicotine dependence
CPT/HCPCS: 99211

== ENCOUNTER 2017-05-01 19:13 | Observation (INO) | payer MEDICARE, BC ==
[2017-05-01] MEDS ORDERED: SODIUM CHLORIDE 0.9% 1,000 ML IV STA (20:33)
--- NOTE | 2017-05-01 20:55 | XR ---
EXAMINATION TYPE: XR chest 2V DATE OF EXAM: 05/01/2017 COMPARISON: 01/25/2017 HISTORY: Short of breath and cough TECHNIQUE: Frontal and lateral views of the chest are obtained. FINDINGS: Heart and mediastinum are normal. Lungs are clear of consolidation. There is pulmonary hyp erinflation and flattening of the diaphragm. Cervical spine fusion surgery is noted. There are chest leads. IMPRESSION: No active cardiopulmonary disease. COPD. There is clearing of some interstitial infiltra te in the left lower lobe compared to old exam.
[2017-05-01 21:20] LABS: Basophils % (A) 1 %; CH 30.8; CHCM 34.4; Eosinophils # (A) 0.7 k/uL (0-0.7); Eosinophils % (A) 11 %; HCT 48.7 % (39.0-53.0); HDW 2.75; HGB 16.3 gm/dL (13.0-17.5); Luc # (Auto) 0.25; Luc % (Auto) 4; Lymphocytes # (A) 2.4 k/uL (1.0-4.8); Lymphocytes % (A) 35 %; MCH 30.1 pg (25.0-35.0); MCHC 33.4 g/dL (31.0-37.0); MCV 90.1 fL (80.0-100.0); Mean Platelet Volume 7.3; Monocytes # (A) 0.4 k/uL (0-1.0); Monocytes % (A) 6 %; Neutrophils % (A) 44 %; RBC 5.41 m/uL (4.30-5.90); RDW 13.9 % (11.5-15.5); WBC 6.8 k/uL (3.8-10.6); WBC (Perox) 6.62
[2017-05-01 21:28] LABS: Prothrombin Time 10.5 sec (9.0-12.0)
[2017-05-01 21:31] LABS: ALT 29 U/L (21-72); AST 24 U/L (17-59); Alkaline Phosphatase 60 U/L (38-126); Anion Gap 11 mmol/L; Blood Urea Nitrogen 15 mg/dL (9-20); Calcium 9.3 mg/dL (8.4-10.2); Carbon Dioxide 24 mmol/L (22-30); Chloride 104 mmol/L (98-107); Glucose 95 mg/dL (74-99); Magnesium 2.1 mg/dL (1.6-2.3); Non-African American GFR(MDRD) >60 (>60 ml/min/1.73 sqM); Potassium 4.5 mmol/L (3.5-5.1); Sodium 139 mmol/L (137-145); Total Bilirubin 0.6 mg/dL (0.2-1.3); Total Protein 7.5 g/dL (6.3-8.2)
[2017-05-01 21:35] LABS: Partial Thromboplastin Time 22.2 sec (22.0-30.0)
[2017-05-01 21:49] LABS: Appearance,Urine Clear (Clear); Bilirubin,Urine Negative (Negative); Glucose,Urine (UA) Negative (Negative); Ketones,Urine Negative (Negative); Leukocyte Esterase,Urine Negative (Negative); Nitrite,Urine Negative (Negative); PH, Urine 5.5 (5.0-8.0); Protein,Urine Trace (Negative); Specific Gravity,Urine 1.023 (1.001-1.035); UA Billing (MACRO vs. MICRO) CHEM
[2017-05-01 21:50] LABS: Creatine Kinase 106 U/L (55-170)
[2017-05-01 22:03] LABS: Troponin I <0.012 ng/mL (0.000-0.034)
[2017-05-01 22:06] LABS: Creatine Kinase MB 2.9 ng/mL (0.0-2.4)
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
[2017-05-01] MEDS ORDERED: MORPHINE SULFATE 4 MG/ML SYRINGE IVP STA (23:19)
[2017-05-01] MEDS ORDERED: methylPREDNISolone SOD SUCCI 125 MG/2 ML VIAL IV STA (23:20)
[2017-05-01] MEDS ORDERED: NALOXONE 0.4 MG/ML 1 ML VIAL IV PRN (23:21)
[2017-05-01] MEDS ORDERED: ACETAMINOPHEN TAB 325 MG TAB PO PRN (23:21)
[2017-05-01] MEDS ORDERED: IPRATROPIUM-ALBUTEROL 3 ML NEB INHALATION PRN (23:34)
[2017-05-01] MEDS ORDERED: ALBUTEROL NEBULIZED 2.5 MG/3 ML INHALATION PRN (23:34)
[2017-05-01] MEDS ORDERED: CALCIUM CARBONATE 500 MG CHEWABLE PO PRN (23:34)
[2017-05-02] MEDS: SODIUM CHLORIDE 0.9% 1,000 ML IV SCH ×2 (01:13→17:13)
[2017-05-02] MEDS: methylPREDNISolone SOD SUCCI 125 MG/2 ML VIAL IV SCH ×4 (06:22→23:23)
[2017-05-02 07:26] LABS: Glucose,Whole Blood 137 mg/dL (75-99)
[2017-05-02] MEDS ORDERED: SYMBICORT 80-4.5 MCG INHALER INHALATION SCH (08:00)
[2017-05-02] MEDS: LISINOPRIL 5 MG TAB PO SCH (08:25)
[2017-05-02] MEDS: PANTOPRAZOLE 40 MG TABLET PO SCH (08:25)
[2017-05-02] MEDS: MAGNESIUM OXIDE 400 MG TAB PO SCH (08:25)
[2017-05-02] MEDS: VITAMIN E (DL,TOCOPHERYL ACET) 400 UNIT CAP PO SCH (08:25)
[2017-05-02] MEDS: DULoxetine HCL 30 MG CAPSULE.DR PO SCH (08:26)
[2017-05-02] MEDS: CHOLECALCIFEROL 1,000 UNIT TAB PO SCH (08:26)
[2017-05-02] MEDS: INSULIN LISPRO (humaLOG) 300 UNIT/3 ML VIAL SQ SCH ×4 (08:26→23:24)
[2017-05-02] MEDS: ATORVASTATIN 10 MG TAB PO SCH (08:26)
[2017-05-02] MEDS: FLUTICASONE 50MCG/SPRAY NASAL 16GM EA NOSTRIL SCH ×2 (08:27→23:18)
[2017-05-02] MEDS ORDERED: NON-FORMULARY DRUG (Glucosamine/Chondr Su A Sod [Osteo Bi-Flex Caplet] 1 TAB) PO SCH (09:00)
[2017-05-02] MEDS: MORPHINE SULFATE 4 MG/ML SYRINGE IV PRN ×3 (09:58→23:12)
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
[2017-05-02] MEDS ORDERED: IPRATROPIUM-ALBUTEROL 3 ML NEB INHALATION PRN (10:09)
[2017-05-02] MEDS: IPRATROPIUM-ALBUTEROL 3 ML NEB INHALATION SCH ×3 (11:19→20:23)
[2017-05-02 11:28] LABS: Glucose,Whole Blood 132 mg/dL (75-99)
[2017-05-02 18:25] LABS: Glucose,Whole Blood 169 mg/dL (75-99)
[2017-05-02] MEDS ORDERED: FORMOTEROL FUMARATE 20 MCG/2 ML NEBU INHALATION SCH (20:00)
[2017-05-02] MEDS ORDERED: HYDROcodone/APAP 5-325MG 1 EACH TAB PO PRN (20:02)
[2017-05-02] MEDS ORDERED: TEMAZEPAM 15 MG CAP PO PRN (20:02)
[2017-05-02] MEDS: FORMOTEROL FUMARATE 20 MCG/2 ML NEBU INHALATION SCH (20:23)
[2017-05-02] MEDS: BUDESONIDE 1 MG/2 ML NEBU INHALATION SCH (20:23)
[2017-05-02 20:40] LABS: Glucose,Whole Blood 209 mg/dL (75-99)
[2017-05-02] MEDS: HEPARIN SODIUM,PORCINE 5,000 UNIT/ML 1 ML VIAL SQ SCH (23:18)
[2017-05-02] MEDS: NICOTINE 14MG/24HR PATCH TRANSDERM SCH (23:21)
[2017-05-02] MEDS: DIAZEPAM 5 MG TAB PO PRN (23:22)
[2017-05-02] MEDS: SULFAMETHOX-TMP 800-160MG 1 EACH TAB PO SCH (23:23)
[2017-05-03] MEDS: PANTOPRAZOLE 40 MG TABLET PO SCH ×3 (00:42→17:55)
[2017-05-03] MEDS: MORPHINE SULFATE 4 MG/ML SYRINGE IV PRN (04:22)
[2017-05-03] MEDS: HYDROcodone/APAP 7.5-325MG 1 EACH TAB PO PRN ×2 (06:11→18:40)
[2017-05-03] MEDS: methylPREDNISolone SOD SUCCI 125 MG/2 ML VIAL IV SCH ×3 (06:11→17:53)
[2017-05-03] MEDS: IPRATROPIUM-ALBUTEROL 3 ML NEB INHALATION SCH ×4 (06:20→19:25)
[2017-05-03] MEDS: INSULIN LISPRO (humaLOG) 300 UNIT/3 ML VIAL SQ SCH ×3 (07:23→17:47)
[2017-05-03 07:34] LABS: Glucose,Whole Blood 124 mg/dL (75-99)
[2017-05-03 07:49] LABS: Basophils % (A) 0 %; CH 30.2; CHCM 33.4; Eosinophils % (A) 0 %; HCT 43.1 % (39.0-53.0); HDW 2.59; HGB 14.5 gm/dL (13.0-17.5); Luc # (Auto) 0.06; Luc % (Auto) 0; Lymphocytes # (A) 1.2 k/uL (1.0-4.8); Lymphocytes % (A) 9 %; MCH 30.5 pg (25.0-35.0); MCHC 33.7 g/dL (31.0-37.0); MCV 90.5 fL (80.0-100.0); Mean Platelet Volume 7.4; Monocytes # (A) 0.4 k/uL (0-1.0); Monocytes % (A) 3 %; Neutrophils # (A) 12.2 k/uL (1.3-7.7); Neutrophils % (A) 88 %; RBC 4.76 m/uL (4.30-5.90); WBC 13.8 k/uL (3.8-10.6); WBC (Perox) 14.37
[2017-05-03] MEDS: FORMOTEROL FUMARATE 20 MCG/2 ML NEBU INHALATION SCH ×2 (08:03→19:25)
[2017-05-03] MEDS: BUDESONIDE 1 MG/2 ML NEBU INHALATION SCH ×2 (08:03→19:25)
[2017-05-03 08:08] LABS: Anion Gap 12 mmol/L; Blood Urea Nitrogen 17 mg/dL (9-20); Calcium 9.9 mg/dL (8.4-10.2); Carbon Dioxide 26 mmol/L (22-30); Chloride 101 mmol/L (98-107); Glucose 129 mg/dL (74-99); Non-African American GFR(MDRD) >60 (>60 ml/min/1.73 sqM); Potassium 4.4 mmol/L (3.5-5.1); Sodium 139 mmol/L (137-145)
--- NOTE | 2017-05-03 08:32 | HP ---
DATE OF ADMISSION: DATE OF SERVICE: 05/02/2017 CHIEF COMPLAINT: Shortness of breath. HISTORY OF PRESENT ILLNESS: This 61-year-old gentleman with a past history medical history of multiple medical problems including COPD, hypertension, hyperlipidemia, sleep apnea, history of back surgery, tonsillectomy, anxiety being followed Dr. Alcantara in the outpatient setting is complaining of shortness of breath. The patient was previously admitted with shortness of breath and chronic obstructive pulmonary disease acute exacerbation. The patient improved significantly. The patient went home. Patient is occasional smoker according to him and because of increasing shortness of breath and cough and sputum the patient came to [facility] and admitted for further evaluation and treatment. There is no significant fever, rigors, headaches, loss of consciousness or seizures. Chest x-ray which was done on admission, which was personally reviewed by me showed increased bronchovascular markings and no evidence of pneumonia. The pulmonary consultation is in progress. PAST MEDICAL HISTORY: History of COPD, history of hypertension, hyperlipidemia, sleep apnea, history of back surgery, neck surgery, cervical fusion, history of anxiety. Medications prior to admission include the home medications are: 1. DuoNeb q.i.d. and p.r.n. 2. Valium 5 mg q.6 p.r.n. 3. Osteo Bi-Flex 1 p.o. daily. 4. Protonix 40 mg daily. 5. Magnesium 400 mg daily. 6. Vitamin E 1000 mg b.i.d. 7. Mevacor 40 mg p.o. daily. 8. Zestril 5 mg t.i.d. 9. [place] 7.5 t.i.d. p.r.n. 10. Advair 250/50, 1 puff b.i.d. 11. Flonase 2 sprays b.i.d. 12. Cymbalta 30 mg p.o. daily. 13. Vitamin D3 1000 daily. 14. TUMS 1000 mg p.o. t.i.d. p.r.n. 15. ProAir HFA 2 puffs q.i.d. p.r.n. ALLERGIES: IODINATED CONTRAST DYES. FAMILY HISTORY: Patient is adopted so unknown. SOCIAL HISTORY: History of smoking continued ongoing as mentioned earlier. No history of alcohol intake. REVIEW OF SYSTEMS: ENT: No diminishing hearing. No diminished vision. CARDIOVASCULAR: No angina, palpitations. RESPIRATORY: As mentioned earlier. GI: No nausea. : No dysuria. NERVOUS SYSTEM: No numbness or weakness. ALLERGY/IMMUNOLOGY: No asthma or hayfever. MUSCULOSKELETAL: As mentioned earlier. HEMATOLOGY: No history of anemia. ENDOCRINE: No history of diabetes or hypothyroidism. CONSTITUTIONAL: As mentioned earlier. DERMATOLOGY: Negative. RHEUMATOLOGY: Negative. PSYCHIATRY: As mentioned earlier. PHYSICAL EXAMINATION: Alert and oriented x3. Pulse 90, blood pressure 114/64, respirations 20, temperature 98.1. Pulse ox is 94% on 3-L. HEENT: Conjunctivae normal. Oral mucosa moist. NECK: No jugular venous distention. No carotid bruit. No lymph node enlargement. CARDIOVASCULAR: S1 and S2. No S3, no S4. RESPIRATORY: Breath sounds diminished at the bases. A few scattered rhonchi and crackles. Chest emphysematous. Accessory muscles of respirations acting. ABDOMEN: Soft, nontender. No mass palpable. LEGS: No edema, no swelling. NERVOUS SYSTEM: Higher function as mentioned. Moves all four limbs. No focal motor deficits. LYMPHATIC: No lymphadenopathy in the neck, axillae or groin. SKIN: No ulcer, rash or bleeding. The labs at this time are chest x-ray as mentioned earlier, otherwise CBC within normal limits. Accu-Cheks 130, 116 and CK-MB 2.9. ASSESSMENT: 1. Chronic obstructive pulmonary disease, acute exacerbation, with acute purulent tracheobronchitis. 2. Increased random blood sugar. 3. History of continued ongoing nicotine dependence. 4. Hypertension. 5. Hyperlipidemia. 6. History of sleep apnea. 7. History of degenerative joint disease. 8. History of CPAP. 9. History of back surgery. 10. Anxiety, not otherwise specified. 11. FULL CODE. RECOMMENDATIONS AND DISCUSSION: In this 61-year-old gentleman who presented with the multiple complex medical issues, will monitor the patient closely. Continue the current medications. Continue symptomatic treatment. Otherwise, at this time I recommend IV steroids, empiric antibiotics. Other than that I would also recommend to monitor blood sugars closely. Bronchodilators, DVT prophylaxis. Symptomatic treatment. Habitrol. The overall prognosis guarded because of multiple complex medical issues. Further recommendations to follow. Copy of dictation forwarded to Dr. Alcantara, who is the primary physician.
[2017-05-03] MEDS: VITAMIN E (DL,TOCOPHERYL ACET) 400 UNIT CAP PO SCH (09:26)
[2017-05-03] MEDS: NICOTINE 14MG/24HR PATCH TRANSDERM SCH (09:26)
[2017-05-03] MEDS: FLUTICASONE 50MCG/SPRAY NASAL 16GM EA NOSTRIL SCH ×2 (09:26→22:04)
[2017-05-03] MEDS: SULFAMETHOX-TMP 800-160MG 1 EACH TAB PO SCH ×2 (09:26→22:05)
[2017-05-03] MEDS: CHOLECALCIFEROL 1,000 UNIT TAB PO SCH (09:26)
[2017-05-03] MEDS: ATORVASTATIN 10 MG TAB PO SCH (09:26)
[2017-05-03] MEDS: LISINOPRIL 5 MG TAB PO SCH (09:27)
[2017-05-03] MEDS: HEPARIN SODIUM,PORCINE 5,000 UNIT/ML 1 ML VIAL SQ SCH ×2 (09:27→22:04)
[2017-05-03] MEDS: MAGNESIUM OXIDE 400 MG TAB PO SCH (09:27)
[2017-05-03] MEDS: DULoxetine HCL 30 MG CAPSULE.DR PO SCH (09:27)
[2017-05-03 12:44] LABS: Glucose,Whole Blood 102 mg/dL (75-99)
--- NOTE | 2017-05-03 16:44 | PN ---
This is a 61-year-old gentleman whom I saw yesterday in consultation. He sees one of my partners for his COPD. ( ) the patient in January saw my partner in the office afterwards and then was readmitted here recently on May 01 for another COPD exacerbation. Unfortunately the patient continues to smoke. His complaints on admission include coughing, shortness of breath, wheezing, chest tightness. He was coughing up phlegm. Chest x-ray was clear of any infiltrates. Current vital signs are reviewed. Temperature 97, heart rate 92, respiratory rate 20, blood pressure 130/82, mean 100, 4-liter saturation 95%. Appears in no acute distress. HEENT examination is grossly unremarkable. Mucous membranes are moist. No oral lesions. NECK: Supple. Full range of motion. No adenopathy or thyromegaly. Cardiovascular examination reveals regular rhythm and rate. S1, S2 normal. No S3, S4 or murmur. Lungs reveal some inspiratory and expiratory wheezes and rhonchi. Breath sounds are improved. Breath sounds are diminished throughout. Slight prolongation. No crackles. Abdomen is soft. Bowel sounds are heard. Extremities are intact. No cyanosis, clubbing or edema. Skin is without rash. Neurologic examination is nonfocal. The patient is feeling better. Labs are reviewed. White count 13.8. Hemoglobin, hematocrit, platelet count all normal. Sodium, potassium, chloride, CO2 all normal. BUN and creatinine were 17 and 0.85. Microbiology is negative. Chest x-ray did not show an acute infiltrate. Medications were adjusted yesterday. ASSESSMENT: 1. Chronic obstructive pulmonary disease exacerbation complicated by purulent tracheobronchitis. 2. History of ongoing tobacco use. 3. History of hypertension. 4. History of hyperlipidemia. 5. History of sleep apnea syndrome, currently on CPAP. PLAN: The patient is doing better today. He will likely be discharged hopefully in a day or so. No additional recommendations are made. He is on short-acting beta agonist, short-acting muscarinic antagonist, inhaled corticosteroids, long-acting beta agonist and systemic corticosteroids along with an oral antibiotic. Will continue to follow. Prognosis is guarded. 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
[2017-05-03 17:01] LABS: Glucose,Whole Blood 114 mg/dL (75-99)
[2017-05-03] MEDS ORDERED: FUROSEMIDE 10 MG/ML 2 ML VIAL IV STA (18:13)
[2017-05-03] MEDS: DIAZEPAM 5 MG TAB PO PRN (22:03)
[2017-05-03 23:16] LABS: Glucose,Whole Blood 140 mg/dL (75-99)
[2017-05-04] MEDS: INSULIN LISPRO (humaLOG) 300 UNIT/3 ML VIAL SQ SCH ×3 (02:09→12:50)
[2017-05-04] MEDS: methylPREDNISolone SOD SUCCI 125 MG/2 ML VIAL IV SCH ×3 (02:15→12:49)
[2017-05-04] MEDS: DIAZEPAM 5 MG TAB PO PRN (07:17)
[2017-05-04 07:19] LABS: Glucose,Whole Blood 114 mg/dL (75-99)
[2017-05-04] MEDS: HYDROcodone/APAP 7.5-325MG 1 EACH TAB PO PRN (07:27)
[2017-05-04] MEDS: IPRATROPIUM-ALBUTEROL 3 ML NEB INHALATION SCH ×2 (07:48→11:27)
[2017-05-04] MEDS: BUDESONIDE 1 MG/2 ML NEBU INHALATION SCH (07:48)
[2017-05-04 07:56] VITALS: BP 110/73; RESP 20; TEMP 97.6
[2017-05-04] MEDS: FORMOTEROL FUMARATE 20 MCG/2 ML NEBU INHALATION SCH (08:02)
--- NOTE | 2017-05-04 08:46 | PN ---
DATE OF SERVICE: 05/03/2017 This 61-year-old gentleman with COPD exacerbation was complaining of increasing cough and sputum copious mucoid sputum. The patient also had nasal discharge. The patient also reports that pulse ox has been 86 on room air. However, the patient is not using oxygen constantly at home, only on an recurrent base. Past medical history reviewed. REVIEW OF SYSTEMS: CARDIOVASCULAR: No angina. RESPIRATORY: As mentioned earlier. GI: As mentioned earlier. : No dysuria. CENTRAL NERVOUS SYSTEM: No numbness, weakness. Medications are reviewed and include: 1. Tylenol 650 q.6h p.r.n. 2. [place] 7.5 mg q.i.d. p.r.n. 3. Ventolin 2.5 t.i.d. p.r.n. 4. DuoNeb q.i.d. and p.r.n. 5. Albuterol q.i.d. 6. Lipitor 10 mg p.o. daily. 7. Pulmicort 1 mg b.i.d. 8. TUMS 1000 mg p.o. t.i.d. 9. Vitamin D3 1000 mg daily. 10. Valium 5 mg q.6 p.r.n. 11. Cymbalta 30 mg p.o. daily. 12. Flonase. 13. Perforomist 20 p.o. b.i.d. 14. Heparin 5000 units b.i.d. 15. Humalog a.c. and at bedtime. 16. Zestril 5 mg p.o. daily. 17. Magnesium oxide 400 mg daily. 18. Solu-Medrol 60 mg IV q.6. 19. Morphine 4 mg IV q.6. 20. Narcan 0.2 q.2 p.r.n. 21. Habitrol 14 daily. 22. Protonix 40 mg p.o. b.i.d. 23. Restoril 50 mg q.h.s. 24. Bactrim DS one p.o. b.i.d. 25. Vitamin p.o. daily. PHYSICAL EXAMINATION: The patient is alert and oriented times three. Pulse 94, blood pressure 92/53, respiratory rate 20, temperature 97.0, pulse ox 97% on 4 liters. HEENT: Conjunctivae normal. Oral mucosa moist. NECK: No jugular venous distention. No carotid bruit. No lymph node enlargement. Acessory muscles overacting. RESPIRATORY: Bilateral scattered rhonchi and crackles. No bronchial breath sounds. ABDOMEN: Soft, nontender. No mass palpable. No swelling. Nervous system: Higher functions as mentioned earlier. Moves all four limbs. No focal deficits. LYMPHATICS: No lymph nodes palpable in the neck, axillae or groin. SKIN: No ulcer, rash or bleeding. LABS: WBC 13.9, hemoglobin 14,5, Accu-Cheks 129, influenza negative. ASSESSMENT: 1. Chronic obstructive pulmonary disease acute exacerbation with acute purulent tracheobronchitis. 2. Increased random blood sugar exacerbated by steroids. 3. History of continued ongoing nicotine dependence. 4. Hypertension, essential. 5. Hyperlipidemia. 6. History of sleep apnea. 7. History of degenerative joint disease. 8. History of CPAP. 9. History of back surgery and degenerative joint disease. 10. Anxiety, not otherwise specified. 11. FULL CODE. RECOMMENDATIONS AND DISCUSSION: Recommend to continue current medications. Continue symptomatic treatment. Otherwise, I recommend to continue with empiric antibiotics, bronchodilators, steroids. Monitor blood sugars closely. Closely follow with pulmonary. Guarded prognosis because of multiple complex medical issues. We will continue to monitor. Further recommendations to follow. Single dose of Lasix and continue to monitor. Continue the rest of the medications as home medications. Discussed with the patient who understands and agrees. Smoking cessation also has been counseled. NADIR
[2017-05-04 09:00] LABS: Basophils % (A) 0 %; CH 30.1; CHCM 32.9; Eosinophils % (A) 0 %; HCT 42.5 % (39.0-53.0); HDW 2.49; HGB 14.1 gm/dL (13.0-17.5); Luc # (Auto) 0.07; Luc % (Auto) 1; Lymphocytes # (A) 1.1 k/uL (1.0-4.8); Lymphocytes % (A) 8 %; MCH 30.5 pg (25.0-35.0); MCHC 33.2 g/dL (31.0-37.0); MCV 91.9 fL (80.0-100.0); Mean Platelet Volume 8.1; Monocytes # (A) 0.4 k/uL (0-1.0); Monocytes % (A) 3 %; Neutrophils # (A) 13.2 k/uL (1.3-7.7); Neutrophils % (A) 89 %; RBC 4.63 m/uL (4.30-5.90); RDW 14.3 % (11.5-15.5); WBC 14.8 k/uL (3.8-10.6); WBC (Perox) 14.69
[2017-05-04 09:27] LABS: Anion Gap 10 mmol/L; Blood Urea Nitrogen 16 mg/dL (9-20); Calcium 9.4 mg/dL (8.4-10.2); Carbon Dioxide 25 mmol/L (22-30); Chloride 104 mmol/L (98-107); Glucose 106 mg/dL (74-99); Non-African American GFR(MDRD) >60 (>60 ml/min/1.73 sqM); Potassium 4.5 mmol/L (3.5-5.1); Sodium 139 mmol/L (137-145)
[2017-05-04] MEDS: MORPHINE SULFATE 4 MG/ML SYRINGE IV PRN (09:57)
[2017-05-04] MEDS: DULoxetine HCL 30 MG CAPSULE.DR PO SCH (09:58)
[2017-05-04] MEDS: ATORVASTATIN 10 MG TAB PO SCH (09:58)
[2017-05-04] MEDS: PANTOPRAZOLE 40 MG TABLET PO SCH (09:58)
[2017-05-04] MEDS: CHOLECALCIFEROL 1,000 UNIT TAB PO SCH (09:58)
[2017-05-04] MEDS: LISINOPRIL 5 MG TAB PO SCH (09:58)
[2017-05-04] MEDS: MAGNESIUM OXIDE 400 MG TAB PO SCH (09:58)
[2017-05-04] MEDS: SULFAMETHOX-TMP 800-160MG 1 EACH TAB PO SCH (09:58)
[2017-05-04] MEDS: HEPARIN SODIUM,PORCINE 5,000 UNIT/ML 1 ML VIAL SQ SCH (09:59)
[2017-05-04] MEDS: NICOTINE 14MG/24HR PATCH TRANSDERM SCH (10:02)
[2017-05-04] MEDS: VITAMIN E (DL,TOCOPHERYL ACET) 400 UNIT CAP PO SCH (10:03)
[2017-05-04] MEDS: FLUTICASONE 50MCG/SPRAY NASAL 16GM EA NOSTRIL SCH (10:03)
[2017-05-04] MEDS ORDERED: LORATADINE 10 MG TAB PO SCH (10:45)
[2017-05-04] MEDS ORDERED: guaiFENesin 600 MG TABLET.ER PO SCH (11:00)
--- NOTE | 2017-05-04 11:10 | XR ---
EXAMINATION TYPE: XR chest 1V portable DATE OF EXAM: 05/04/2017 COMPARISON: May 01, 2017 HISTORY: Shortness of breath TECHNIQUE: Single frontal view of the chest is obtained. FINDINGS: Opacity at the left lung base continues to improve. COPD is again noted. There remains some blunting of the costophrenic angles bilaterally which could be due to atelectasis or small pleural e ffusions. Underlying airspace disease is thought to be unlikely. There is no pneumothorax. Remainder of the lung bridges are clear. The cardiac silhouette is unremarkable. Fusion hardware in the cervical spine is again noted. IMPRESSION: 1. Continued improvement in opacity at the left lung base. 2. Blunting of costophrenic angles bilaterally could be due to atelectasis, tiny pleural effusions, t he possibility of air space disease is thought to be unlikely.
[2017-05-04 11:46] VITALS: PULSE 100
[2017-05-04 11:57] LABS: Glucose,Whole Blood 131 mg/dL (75-99)
--- NOTE | 2017-05-04 12:30 | P.PN ---
Subjective Progress note dated 05/04/2017 61-year-old male with a history of underlying COPD. The patient looks well today and may be discharged home. Up to the primary. Chest x-ray today continues to show improvement. Unfortunately, the patient continues to smoke. I have talked him about smoking cessation. He seems understand. He'll need ongoing counseling. He'll need to follow-up with my partner who he sees in our office. I get the sense of the patient's not really serious about smoking cessation but we'll see. Objective - Vital Signs Vital signs: Vital Signs Temp 97.6 F 05/04/17 07:00 Pulse 100 05/04/17 11:45 Resp 20 05/04/17 07:00 BP 110/73 05/04/17 07:00 Pulse Ox 97 05/04/17 07:52 Intake & Output 05/03/17 05/04/17 05/04/17 18:59 06:59 18:59 Intake Total 640 Balance 640 Intake: Oral 640 Other: Voiding Method Urinal Urinal # Voids 2 3 - Exam No acute distress, oriented 3. HEENT examination is grossly unremarkable. Mucous membranes are moist. No oral lesions. Neck supple. Full range of motion. No adenopathy or thyromegaly. Cardiovascular examination reveals regular rhythm rate. S1-S2 normal. No S3- S4 or murmur. Lungs reveal severely diminished breath rhonchi. No wheezes. Slight prolongation. Breath sounds are equal but diminished throughout. Certainly improved. Abdomen soft bowel sounds are heard. Extremities are intact. No cyanosis clubbing or edema. Skin without rash. - Labs CBC & Chem 7: 05/04/17 08:03 05/04/17 08:03 Labs: Abnormal Lab Results - Last 24 Hours (Table) 05/03/17 05/03/17 05/03/17 Range/Units 12:39 17:00 23:13 WBC (3.8-10.6) k/uL Neutrophils # (1.3-7.7) k/uL Glucose (74-99) mg/dL POC Glucose (mg/dL) 102 H 114 H 140 H (75-99) mg/dL 05/04/17 05/04/17 05/04/17 Range/Units 07:15 08:03 08:03 WBC 14.8 H (3.8-10.6) k/uL Neutrophils # 13.2 H (1.3-7.7) k/uL Glucose 106 H (74-99) mg/dL POC Glucose (mg/dL) 114 H (75-99) mg/dL 05/04/17 Range/Units 11:54 WBC (3.8-10.6) k/uL Neutrophils # (1.3-7.7) k/uL Glucose (74-99) mg/dL POC Glucose (mg/dL) 131 H (75-99) mg/dL Assessment and Plan (1) Acute bronchitis Status: Acute (2) Acute exacerbation of chronic obstructive pulmonary disease (COPD) Status: Acute (3) COPD exacerbation Status: Acute (4) Smoking addiction Status: Acute Plan: Plan dated 05/02/2017 I counseled the patient about the importance of smoking cessation. I reviewed his x-ray. His x-rays reviewed with reviewed and showed no acute abnormality. He was examined. I did talk to the patient for some time. The patient will be placed on appropriate medications including a short acting beta agonist as well as a short acting muscarinic antagonist, a long-acting beta agonist and inhaled corticosteroids and systemic corticosteroids. He will also only needs an oral antibiotic. Hopefully his length of stay will be about 3-4 days. We'll continue to follow closely. Prognosis is guarded. Again the importance of smoking cessation. Plan dated 05/04/2017 The patient may be discharged home today. Not sure. Up to the primary. From the pulmonary standpoint, the patient could be discharged. If discharged, the patient should go home on a prednisone burst and taper, typically 40 mg for 4 days 30 mg for 4 days 20 mm for 4 days and 10 mg for 4 days and stop. The patient should also go home on a short course of antibiotics. He can be treated with any of the regular oral antibiotics. This could include either Augmentin and Bactrim Cipro Levaquin Ceftin Omnicef or Zithromax. Again he should be treated for about 5-7 days. He does need to follow-up with my partner Dr. Gonzalez. We'll continue to counseled about smoking cessation. The rest of his medications are available to him at home. Time with Patient: Less than 30
[2017-05-04] MEDS ORDERED: FUROSEMIDE 10 MG/ML 2 ML VIAL IV STA (14:16)
--- NOTE | 2017-05-04 21:14 | DS ---
DATE OF ADMISSION: 05/01/2017 DATE OF DISCHARGE: 05/04/2017 FINAL DIAGNOSES: 1. Chronic obstructive pulmonary disease acute exacerbation as well as acute purulent tracheobronchitis. 2. Increased random blood sugar exacerbated with steroids. 3. History of continued ongoing nicotine dependence. 4. Hypertension, essential, history. 5. Hyperlipidemia. 6. Sleep apnea. 7. History of degenerative joint disease. 8. History of CPAP. 9. History of back surgery and degenerative joint disease. 10. Anxiety, not otherwise specified. 11. FULL CODE. DISCHARGE DISPOSITION: The patient will be discharged in stable condition with guarded prognosis. Discharge cleared by Dr. Gracia. HISTORY OF PRESENT ILLNESS: This 61-year-old gentleman with a past medical history of multiple medical problems including COPD acute exacerbation as well as acute purulent tracheobronchitis. There was no evidence of pneumonia. Treated symptomatically. Patient improved with bronchodilations and steroids. Patient improved significantly. On exam, vitals are stable. CARDIOVASCULAR: S1, S2 RESPIRATORY: A few rhonchi. ABDOMEN: Soft. NERVOUS SYSTEM: No focal deficits. DISCHARGE ADVICE: 1. Diet is cardiac. 2. Activity limited until follow-up. 3. Follow up with Dr. Alcantara in 2 to 3 days. 4. Follow with Dr. Gracia as advised. Medications will be as follows: 1. Albuterol ProAir HFA p.r.n. 2. TUMS 1000 mg p.o. t.i.d. p.r.n. 3. Vitamin D3 1000 units daily. 4. Valium 5 mg q.6 p.r.n. 5. Cymbalta 30 mg p.o. daily. 6. Flonase nasal spray 2 sprays to each nostril b.i.d. 7. Advair 250/50, 1 puff b.i.d. 8. Glucosamine chondroitin 1 tablet p.o. daily. 9. Mucinex 1200 mg p.o. b.i.d. 10. [place] 7.5 q.i.d. p.r.n. 11. Albuterol Atrovent q.i.d. and p.r.n. 12. Zestril 5 mg p.o. daily. 13. Claritin 10 mg p.o. daily. 14. Mevacor 40 mg p.o. daily. 15. Magnesium 40 mg p.o. daily. 16. Habitrol 14 days. 17. No smoking. 18. Protonix 40 mg p.o. b.i.d. 19. Prednisone taper that will be 40 mg daily for 3 days, 30 for 3 days, 20 for 3 days, 10 for 3 days and then stop. 20. Bactrim DS one p.o. b.i.d. for 5 more days. 21. Vitamin E 1000 mg p.o. daily. Once again, the patient will be discharged in a stable condition with guarded prognosis.
== END 2017-05-04 14:35 | disposition home or self-care (01) ==
LOC: EC 19:13 → 5MS5E 23:30
PROVIDERS: ADMIT Hospitalist; ATTEND Hospitalist
DX: J44.0 Chronic obstructive pulmonary disease with (acute) lower respiratory infection (principal); J20.9 Acute bronchitis, unspecified; F17.200 Nicotine dependence, unspecified, uncomplicated; E78.5 Hyperlipidemia, unspecified; R07.89 Other chest pain; M54.2 Cervicalgia; G89.29 Other chronic pain; I10 Essential (primary) hypertension; G47.33 Obstructive sleep apnea (adult) (pediatric); M41.9 Scoliosis, unspecified; M54.9 Dorsalgia, unspecified; F32.9 Major depressive disorder, single episode, unspecified; Z86.010 Personal history of colon polyps; F41.9 Anxiety disorder, unspecified; R09.02 Hypoxemia; Z79.51 Long term (current) use of inhaled steroids; Z79.899 Other long term (current) drug therapy; Z91.041 Radiographic dye allergy status
CPT/HCPCS: 96361 ×4; 96374 ×2; 96375 ×2; 99285 ×2; 96365; 96366 ×3; 96372 ×2; 36415; 94640 ×5; 94760; 93005; 97162; 83880; 80053; 80048 ×2; 82550; 82553; 83735; 84484; 85025 ×3; 85610; 85730; 81003; 87502; 71010; 71020; G0378 ×4; S4990 ×3; J2270 ×4; J1644 ×3; J2930 ×4

== ENCOUNTER → 2017-05-09 | Outpatient (CLI) | payer MEDICARE, BC ==
--- NOTE | 2017-05-09 16:12 | MR ---
EXAMINATION TYPE: MR brain wo/w con DATE OF EXAM: 05/09/2017 2:41 PM COMPARISON: Outside report from 11/10/2011 HISTORY: brain tumor, head injury CONTRAST: Patient received 15 mL intravenous MultiHance gadolinium contrast. Multiplanar and multispin-echo imaging of the brain was performed . Pre and post contrast enhanced i mages are obtained. The ventricles, basal cisterns and sulci overlying the cerebral convexities are mildly enlarged. Rem ote insult left occipital region. There is evidence of mild periventricular white matter ischemic demyelination. Remote deep white matter insults are also noted. No acute edema is seen on diffusion weighted imaging. There is no evidence for midline shift or mass effect. Acute intracranial hemorrhage. There is a left frontal arachnoid cyst measuring 5.2 x 3.4 cm. Previou s measurement was not provided on the outside report. No enhancing lesions are seen. The paranasal sinuses and mastoid air cells are well-aerated. IMPRESSION: 1. Age-related atrophic and chronic small vessel ischemic change. No acute intracranial process at t his time. 2. No enhancing lesions are seen. 3. High left frontal arachnoid cyst.
== END | disposition home or self-care (01) ==
LOC: RADMRIMAIN 13:51
PROVIDERS: ATTEND Psychiatry & Neurology Neurology
DX: D43.2 Neoplasm of uncertain behavior of brain, unspecified (principal); G31.1 Senile degeneration of brain, not elsewhere classified; I67.82 Cerebral ischemia; G93.0 Cerebral cysts
CPT/HCPCS: 70553; A9577

== ENCOUNTER → 2017-08-20 | Outpatient (CLI) | payer MEDICARE, BC ==
--- NOTE | 2017-08-20 13:58 | CT ---
EXAMINATION TYPE: CT chest w con DATE OF EXAM: 08/20/2017 COMPARISON: 01/18/2017 HISTORY: Multiple lung nodules CT DLP: 388.7 mGycm Automated exposure control for dose reduction was used. CONTRAST: CT scan of the chest is performed with IV Contrast, patient injected with 100 mL of Omnipaque 300. FINDINGS: LUNGS: Pulmonary nodules: 1. 3 mm nodule left lung apex. Stable. 2. 4 mm nodule lingula left upper lobe stable. 3. 5 mm nodule lingula left upper lobe stable. 4. Left lower lobe pulmonary nodule previously described not seen on today's exam. Diffuse emphysematous changes are seen. No pleural effusion or pneumothorax. No consolidative pneumon ia. MEDIASTINUM: There are no greater than 1 cm hilar or mediastinal lymph nodes. No pericardial effusi on is seen. OTHER: Post surgical change involving the cervical spine. Tiny nodule posterior segment right lobe o f the liver too small to characterize. Large hiatal hernia noted. IMPRESSION: 1. Stable pulmonary nodules with no significant interval change. 2. COPD 3. Large hiatal hernia. 4. Stable less than 1 cm right hepatic lobe lesion. Too small to characterize.
== END | disposition home or self-care (01) ==
LOC: RADCTMAIN 12:31
PROVIDERS: ATTEND Internal Medicine Critical Care Medicine
DX: J44.9 Chronic obstructive pulmonary disease, unspecified (principal); R91.8 Other nonspecific abnormal finding of lung field; Z91.041 Radiographic dye allergy status
CPT/HCPCS: 71260; Q9967

== ENCOUNTER → 2017-10-05 | Outpatient (CLI) | payer MEDICARE, BC ==
--- NOTE | 2017-10-05 16:51 | US ---
EXAMINATION TYPE: US duplex aorta DATE OF EXAM: 10/05/2017 COMPARISON: NONE CLINICAL HISTORY: Z13.6 Screening for Cardiovascular Disease. Pt states back pain, screening for AAA Pt very gassy EXAM MEASUREMENTS: Abdominal Aorta: Proximal: 2.3 x 2.3 cm Mid: 2.1 x 2.1 cm Distal: 2.2 x 2.3 cm Bifurcation: SWAPNA: 1.0 x 1.1 cm VÍCTOR: 1.1 x 1.1 cm Somewhat ectatic appearance to aorta without evidence of AAA IMPRESSION: Aorta measures up to 2.3 cm. There is no evidence of aortic aneurysm or dissection.
== END | disposition home or self-care (01) ==
LOC: RADUSWWP 16:15
PROVIDERS: ATTEND Internal Medicine
DX: Z13.6 Encounter for screening for cardiovascular disorders (principal)
CPT/HCPCS: 93979

== ENCOUNTER 2018-03-20 13:09 | Emergency (ER) | payer MEDICARE, BC ==
--- NOTE | 2018-03-20 14:24 | XR ---
EXAMINATION TYPE: XR lumbar spine 2 or 3V DATE OF EXAM: 03/20/2018 CLINICAL HISTORY: Low back pain after bending injury TECHNIQUE: Frontal and lateral images of the lumbar spine are obtained. COMPARISON: Lumbar spine x-ray January 10, 2017 FINDINGS: There are 5 lumbar type vertebral bodies redemonstrated. The lumbar spine redemonstrates dextroconvex scoliosis centered at L2 levels without evidence of acute fracture or dislocation. Later al view is suboptimal due to more angled position on current study. Postsurgical change L4-L5 level w ith posterior interpedicular rods and screws and artificial disc material is redemonstrated. Vertebra l body heights and disc space heights above surgical level are felt satisfactory. Overlying soft tiss ue is unremarkable. IMPRESSION: No acute fracture or dislocation is seen in the lumbar spine. No significant change from prior.
[2018-03-20 14:28] LABS: Appearance,Urine Clear (Clear); Bilirubin,Urine Negative (Negative); Blood,Urine Negative (Negative); Color,Urine Yellow; Glucose,Urine (UA) Negative (Negative); Ketones,Urine Negative (Negative); Leukocyte Esterase,Urine Negative (Negative); Nitrite,Urine Negative (Negative); Protein,Urine Trace (Negative); Specific Gravity,Urine 1.027 (1.001-1.035)
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
[2018-03-20 15:29] VITALS: BP 129/80; PULSE 79; RESP 16; TEMP 97.8
== END 2018-03-20 15:28 | disposition home or self-care (01) ==
LOC: EC 13:09
DX: M54.5 Low back pain (principal); G89.29 Other chronic pain; M54.2 Cervicalgia; R39.198 Other difficulties with micturition; J44.9 Chronic obstructive pulmonary disease, unspecified; E78.5 Hyperlipidemia, unspecified; I10 Essential (primary) hypertension; G47.33 Obstructive sleep apnea (adult) (pediatric); Z99.89 Dependence on other enabling machines and devices; F32.9 Major depressive disorder, single episode, unspecified; F41.9 Anxiety disorder, unspecified; Z79.51 Long term (current) use of inhaled steroids; Z79.899 Other long term (current) drug therapy; Z91.041 Radiographic dye allergy status
CPT/HCPCS: 72100; 81003; 87086; 99283

== ENCOUNTER 2018-06-18 13:09 | Day surgery (SDC) | payer MEDICARE, BC ==
[2018-06-14 09:57] VITALS: BMI 24.3
[~2018-06-18 13:09] MED LIST: LACTATED RINGERS 1,000 ML IV SCH
[2018-06-18 13:37] VITALS: TEMP 98
[2018-06-18] MEDS ORDERED: LIDOCAINE 1% 20 ML VIAL (10MG/ML) FOR IV START INTRADERMA ONE (13:47)
[2018-06-18] MEDS ORDERED: PROPOFOL 10 MG/ML 20 ML VIAL IV ONE (14:13)
[2018-06-18 14:43] VITALS: RESP 16
--- NOTE | 2018-06-18 14:47 | P.PCN ---
Date of Procedure: 06/18/18 Procedure(s) Performed: Procedure: Esophagogastroduodenoscopy Preoperative diagnosis: Dysphagia. Postoperative diagnosis: 1. Moderately sized hiatal hernia with no obvious esophagitis or strictures. 2. No obvious Zenker's diverticulum or other abnormalities to account for his symptoms. Preparation and sedation: Was provided by anesthesia. Brief clinical history: The patient is a 63-year-old male who has been having issues with dysphagia since 1993 that has progressed over the years. His last evaluation in November 2016 at [facility] included a barium swallow and he was given instructions to follow while eating and swallowing but no endoscopic or surgical intervention was recommended. The patient has history of degenerative disc disease and had cervical surgery with a titanium arnaud placed. Because of his worsening symptoms, he was scheduled for this evaluation. Procedure: With the patient on his left lateral decubitus position and after informed consent and adequate sedation, I passed a Olympus-GIF 160 video upper endoscope through the cricopharyngeus down the esophagus. Particular attention was made while advancing the endoscope into the cricopharyngeus area and I did not notice any obvious Zenker's diverticulum or any obvious pathology. GE junction was around 38 cm from the incisors and there was a moderately sized hiatal hernia but no obvious esophagitis or complicated reflux disease. No strictures were seen or any Molina's esophagus. The endoscope was then passed into the stomach which was insufflated with air and inspected in detail including the retroflex view in the cardia. No obvious abnormalities were seen. Pyloric channel, duodenal bulb, post bulbar area and descending duodenum appeared within normal limits. No biopsies were indicated then the endoscope was withdrawn. The patient tolerated the procedure well. Plan: I summarized the findings to the patient. I recommend a modified barium swallow. Further plans can then be made based on his course and the barium study results.
[2018-06-18 15:07] VITALS: BP 131/84; PULSE 73
== END 2018-06-18 15:17 | disposition home or self-care (01) ==
LOC: ORWHC2ENDO 13:09
DX: K44.9 Diaphragmatic hernia without obstruction or gangrene (principal); I10 Essential (primary) hypertension; E78.5 Hyperlipidemia, unspecified; J44.9 Chronic obstructive pulmonary disease, unspecified; G47.33 Obstructive sleep apnea (adult) (pediatric); M41.9 Scoliosis, unspecified; Z91.041 Radiographic dye allergy status; Z79.891 Long term (current) use of opiate analgesic; Z79.51 Long term (current) use of inhaled steroids; Z79.899 Other long term (current) drug therapy; Z86.010 Personal history of colon polyps; Z99.89 Dependence on other enabling machines and devices; Z98.1 Arthrodesis status
CPT/HCPCS: 43235; J2704

== ENCOUNTER → 2018-07-18 | Outpatient (CLI) | payer MEDICARE, BC ==
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
== END | disposition home or self-care (01) ==
LOC: RADFLMAIN 11:14
PROVIDERS: ATTEND Internal Medicine
DX: K22.5 Diverticulum of esophagus, acquired (principal); J39.2 Other diseases of pharynx
CPT/HCPCS: 74230

== ENCOUNTER → 2018-08-29 | Outpatient (CLI) | payer MEDICARE, BC ==
--- NOTE | 2018-08-30 08:35 | CT ---
EXAMINATION TYPE: CT chest w con DATE OF EXAM: 08/29/2018 COMPARISON: 02/28/2018 HISTORY: follow up for lung nodule CT DLP: 351.7 mGycm Automated exposure control for dose reduction was used. CONTRAST: CT scan of the chest is performed with IV Contrast, patient injected with 100 mL of Isovue 300. FINDINGS: LUNGS: 1. Stable left upper lobe 3 mm pulmonary nodule. 2. Stable 3 mm nodule within the lingula. 3. Stable 5 mm lingular nodule. 4. Previously noted right apical nodule is not redemonstrated. 5. No new nodules seen. Moderate emphysematous change persists. No evidence for focal infiltrate or mass. No volume loss. MEDIASTINUM: There are no greater than 1 cm hilar or mediastinal lymph nodes. No pericardial effusi on is seen. Thoracic aorta is of normal caliber. The heart is not enlarged. UPPER ABDOMEN: No significant abnormality appreciated. OTHER: No additional significant abnormality is seen. IMPRESSION: 1. Pulmonary nodularity as outlined above. Stability over a two-year timeframe should be documented r adiographically. Follow-up study in one year advised.
== END | disposition home or self-care (01) ==
LOC: RADCTMAIN 16:54
PROVIDERS: ATTEND Internal Medicine Critical Care Medicine
DX: R91.1 Solitary pulmonary nodule (principal); Z91.048 Other nonmedicinal substance allergy status; Z91.041 Radiographic dye allergy status
CPT/HCPCS: 71260; Q9967

== ENCOUNTER → 2019-06-27 | Outpatient (CLI) | payer MEDICARE, BC ==
--- NOTE | 2019-06-29 15:01 | ECHOF ---
Referral Reason:R60.9 Edema MEASUREMENTS -------- HEIGHT: 175.3 cm WEIGHT: 86.2 kg BP: IVSd: 1.1 cm (0.6 - 1.1) LVIDd: 3.6 cm (3.9 - 5.3) LVPWd: 1.2 cm (0.6 - 1.1) IVSs: 1.4 cm LVIDs: 2.5 cm LVPWs: 1.5 cm Ao Diam: 3.6 cm (2.0 - 3.7) LA Diam: 3.5 cm (2.7 - 3.8) AV Cusp: 2.4 cm (1.5 - 2.6) EPSS: 1.1 cm MV E Mauro: 0.54 m/s MV DecT: 206 ms MV A Mauro: 0.76 m/s MV E/A Ratio: 0.71 RAP: 5.00 mmHg RVSP: 12.80 mmHg MV EF SLOPE: 39.08 mm/s (70 - 150) MV EXCURSION: 22.91 mm (> 18.000) FINDINGS -------- Sinus rhythm. This was a technically difficult study with suboptimal views. Study taken from subcoastals only due to severe COPD. No apical views The left ventricular size is normal. Left ventricular wall thickness is normal. Overall left vent ricular systolic function is normal with, an EF between 55 - 60 %. The RV was not well visualized. The left atrial size is normal. The right atrial size is normal. Interatrial and interventricular septum intact. The aortic valve is trileaflet and appears structurally normal. The mitral valve was not well visualized. There is trace mitral regurgitation. The tricuspid valve was not well visualized. Trace tricuspid regurgitation present. Right ventric ular systolic pressure is normal at < 35 mmHg. The pulmonic valve was not well visualized. The aortic root size is normal. Normal inferior vena cava with normal inspiratory collapse consistent with estimated right atrial pre ssure of 5 mmHg. There is no pericardial effusion. CONCLUSIONS -------- 1. Sinus rhythm. 2. This was a technically difficult study with suboptimal views. 3. Study taken from subcoastals only due to severe COPD. No apical views 4. The left ventricular size is normal. 5. Left ventricular wall thickness is normal. 6. Overall left ventricular systolic function is normal with, an EF between 55 - 60 %. 7. The RV was not well visualized. 8. The left atrial size is normal. 9. The right atrial size is normal. 10. Interatrial and interventricular septum intact. 11. The aortic valve is trileaflet and appears structurally normal. 12. The mitral valve was not well visualized. 13. There is trace mitral regurgitation. 14. The tricuspid valve was not well visualized. 15. Trace tricuspid regurgitation present. 16. Right ventricular systolic pressure is normal at < 35 mmHg. 17. The pulmonic valve was not well visualized. 18. The aortic root size is normal. 19. Normal inferior vena cava with normal inspiratory collapse consistent with estimated right atrial pressure of 5 mmHg. 20. There is no pericardial effusion. CHART SNATCHER: Jayleen Blackman RDCS
== END | disposition home or self-care (01) ==
LOC: RADECHMAIN 12:26
PROVIDERS: ATTEND Internal Medicine
DX: R60.9 Edema, unspecified (principal); J44.9 Chronic obstructive pulmonary disease, unspecified
CPT/HCPCS: 93306

== ENCOUNTER → 2020-05-27 | Outpatient (CLI) | payer MEDICARE, BC ==
--- NOTE | 2020-05-27 12:21 | FL ---
Barium swallow HISTORY: Dysphagia 1 minutes 29 seconds fluoroscopy time, 69 images obtained Patient was given high density barium to drink. The swallowing mechanism shows no will aspiration. There is a focal contrast collection present exte nding from the inferior cervical esophagus consistent with Zenker's diverticulum. This extends from t he approximate C6 level at the midline. Patient shows anterior cervical fusion and discectomy change at C4-C7. Remaining aspects of the swallow are markable for some minimal tertiary esophageal contract ions. Prominent lung lines suggest underlying COPD IMPRESSION: Zenker's diverticulum
== END | disposition home or self-care (01) ==
LOC: RADUSWWP 09:01
PROVIDERS: ATTEND Otolaryngology
DX: K22.5 Diverticulum of esophagus, acquired (principal)
CPT/HCPCS: 74220

== ENCOUNTER → 2020-09-15 | Outpatient (CLI) | payer MEDICARE, BC ==
--- NOTE | 2020-09-15 20:51 | CT ---
EXAMINATION TYPE: CT chest w con DATE OF EXAM: 09/15/2020 COMPARISON: 08/29/2018 HISTORY: Abnormal lung field, Hx COPD CT DLP: 649 mGycm, Automated exposure control for dose reduction was used. CONTRAST: Performed injected with 100 mL of Isovue 300. TECHNIQUE: Axial images were obtained at 5 mm thick sections. Reconstructed images are reviewed on [employer] computer in the coronal plane. FINDINGS: Portion of the thyroid visualized is normal. Scans of emphysematous changes are present bilaterally. There appears to be increased stranding withi n the lingula. No enlarging nodularity is evident. Small lymph nodes are the pretracheal space. The ascending aorta diameter at the level of the main p ulmonary artery is 3.6 cm. The main pulmonary artery diameter at the bifurcation is 2.[address] sections are obtained through the upper abdomen. Abdomen is essentially unremarkable. IMPRESSIONS: 1. Advanced emphysematous changes. 2. No enlarging nodularity.
== END | disposition home or self-care (01) ==
LOC: RADCTMAIN 16:58
PROVIDERS: ATTEND Internal Medicine Critical Care Medicine
DX: J43.9 Emphysema, unspecified (principal)
CPT/HCPCS: 71260; Q9967

== ENCOUNTER → 2020-09-17 | Outpatient (CLI) | payer MEDICARE, BC ==
--- NOTE | 2020-09-19 20:13 | CT ---
EXAMINATION TYPE: CT thor lumbar spine wo con DATE OF EXAM: 09/17/2020 COMPARISON: CT chest 09/15/2020. HISTORY: Thoracic and lumbar pain CT DLP: 1878.3 mGycm Automated exposure control for dose reduction was used. Axial imaging of the thoracic and lumbar spine obtained without intravenous contrast. Coronal and sag ittal reformatted images were generated. FINDINGS: There is dextroscoliosis of the thoracolumbar spine, with apex centered at L2. Posterior fixation arnaud s and bilateral transpedicular screws of L4-L5 with interbody spacer device. Streak artifact limits evaluation for canal stenosis at these levels. Intrathecal spinal stimulator device entering the spin al canal at L3-L4, with distal tip at the level of T8. Incompletely visualized anterior cervical spin e fixation hardware. No evidence of acute fracture or dislocation. Vertebral body heights are normal. Disc bulge and facet arthropathy at L3-L4 with mild canal stenosis. No other significant canal steno sis is seen of the thoracolumbar spine. No evidence of high-grade neural foramina narrowing. Minimal degenerative endplate spurring of the thoracic spine. Infrarenal abdominal aortic ectasia measures up to 2.6 cm. Right renal simple cyst and tiny hemorrhag ic/proteinaceous cyst. Moderate centrilobular emphysema of the bilateral lungs IMPRESSION: 1. No acute fracture or dislocation of the thoracolumbar spine. 2. Dextroscoliosis. 3. Posterior fixation changes at L4-L5. Intrathecal spinal stimulator device with no evidence of lead discontinuity. 4. Mild canal stenosis at L3-L4. 1. NO ACUTE FRACTURE
== END | disposition home or self-care (01) ==
LOC: RADCTMAIN 18:39
PROVIDERS: ATTEND Internal Medicine
DX: M48.061 Spinal stenosis, lumbar region without neurogenic claudication (principal); M51.36 Other intervertebral disc degeneration, lumbar region; M51.34 Other intervertebral disc degeneration, thoracic region
CPT/HCPCS: 72128; 72131

== ENCOUNTER 2021-05-21 00:23 | Observation (INO) | payer MEDICARE, BC ==
[2021-05-21] MEDS ORDERED: HYDROmorphone 1 MG/ML 1 ML SYRINGE IM STA (00:36)
--- NOTE | 2021-05-21 00:36 | ED ---
Recheck HPI - General Chief Complaint: Shortness of Breath Stated Complaint: Pain all over Time Seen by Provider: 05/21/21 00:27 Source: EMS, RN notes reviewed, old records reviewed Mode of arrival: EMS Limitations: no limitations - History of Present Illness Initial Comments: This is a 66-year-old male DF for evaluation. Patient Dese for evaluation mu ltiple complaints weakness chest pain the pain back pain shortness of breath cough congestion can't catch his breath. Patient has no fevers. No chest pain. Patient is breathing is bad but his been getting progressively worse his been homebound for about 2 years. Family is aware of his condition as his is at bedside resting better pain control. Patient has a pain pump unsure if it is still working. Patient's pain has been increasing as of lately and he also complains of shortness of breath and tightness today MD Complaint: other (Shortness of breath and worsening chronic pain) -: days(s) Returns Today for: persistent/worsening pain related to initial visit Symptoms Since Prior Visit: worsening pain Associated Symptoms: chills, shortness of breath, nausea Treatments Prior to Arrival: other (None, home morphine) - Related Data Home Medications Medication Instructions Recorded Confirmed DULoxetine HCL [Cymbalta] 30 mg PO HS 11/02/16 06/18/18 Lovastatin [Mevacor] 40 mg PO HS 11/02/16 06/18/18 Pantoprazole Sodium [Protonix] 40 mg PO QAM 11/02/16 06/18/18 Fluticasone/Salmeterol [Advair 1 puff INHALATION RT-BID 01/09/17 06/18/18 250-50 Diskus] Albuterol Sulfate [Proair Hfa] 2 puff INHALATION RT-QID PRN 01/25/17 06/18/18 Magnesium 400 mg PO QAM 02/20/17 06/18/18 Hydrocodone/Acetaminophen [[place] 1 tab PO QID PRN 03/20/18 06/18/18 10-325] Ipratropium-Albuterol Nebulize 3 ml INHALATION RT-QID PRN 03/20/18 06/18/18 [Duoneb 0.5 mg-3 mg/3 ml Soln] ARIPiprazole [Abilify] 5 mg PO QAM 06/14/18 06/18/18 Loratadine [Claritin] 10 mg PO QAM 06/14/18 06/18/18 Vitamin E (Dl,Tocopheryl Acet) 800 unit PO DAILY 06/14/18 06/18/18 [Vitamin E] Allergies Allergy/AdvReac Type Severity Reaction Status Date / Time Iodinated Contrast Media Allergy Dyspnea Verified 06/18/18 13:30 [Iodinated Contrast Media - Oral and] Review of Systems ROS Statement: Those systems with pertinent positive or pertinent negative responses have been documented in the HPI. ROS Other: All systems not noted in ROS Statement are negative. Past Medical History Past Medical History: COPD, Hyperlipidemia, Hypertension, Musculoskeletal Di sorder, Sleep Apnea/CPAP/BIPAP Additional Past Medical History / Comment(s): SLEEP APNEA WITH C-PAP.,OXYGEN AT 2-4 L. 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 History of Any Multi-Drug Resistant Organisms: None Reported Past Surgical History: Back Surgery, Tonsillectomy Additional Past Surgical History / Comment(s): Hx of Fx C-7 -cervical & lumbar fusion., epidural injections & pain clinic procedures Past Anesthesia/Blood Transfusion Reactions: Unable to Obtain, Previous Problems w/ Anesthesia Additional Past Anesthesia/Blood Transfusion Reaction / Comment(s): adrenal gland failure during back surgery. PT CONCERNED ABOUT WEAKNESS IN ESOPHAGUS . PT ADOPTED- UNKNOWN FAMILY HX. Past Psychological History: Anxiety, Depression Smoking Status: Heavy tobacco smoker Past Alcohol Use History: None Reported Past Drug Use History: None Reported - Past Family History Father Family Medical History: No Reported History Additional Family Medical History / Comment(s): Adopted Mother Family Medical History: No Reported History Additional Family Medical History / Comment(s): adopted General Exam Limitations: no limitations General appearance: alert, in no apparent distress, anxious Head exam: Present: atraumatic, normocephalic, normal inspection Eye exam: Present: normal appearance, PERRL, EOMI. Absent: scleral icterus, conjunctival injection, periorbital swelling ENT exam: Present: normal exam, mucous membranes dry Neck exam: Present: normal inspection. Absent: tenderness, meningismus, lymphadenopathy Respiratory exam: Present: wheezes, accessory muscle use, decreased breath sounds, prolonged expiratory. Absent: respiratory distress, rales, rhonchi, s tridor Cardiovascular Exam: Present: regular rate, normal rhythm, normal heart sounds. Absent: systolic murmur, diastolic murmur, rubs, gallop, clicks GI/Abdominal exam: Present: soft, normal bowel sounds. Absent: distended, tenderness, guarding, rebound, rigid Extremities exam: Present: normal inspection, full ROM, normal capillary refill. Absent: tenderness, pedal edema, joint swelling, calf tenderness Back exam: Present: normal inspection Neurological exam: Present: alert, oriented X3, CN II-XII intact Psychiatric exam: Present: normal affect, normal mood Skin exam: Present: warm, dry, intact, normal color. Absent: rash Course Vital Signs 05/21/21 05/21/21 01:08 03:00 Temperature 97.8 F Pulse Rate 99 86 Respiratory 20 20 Rate Blood Pressure 143/106 126/90 O2 Sat by Pulse 96 97 Oximetry - Reevaluation(s) Reevaluation #1: 05/21/21 03:12 Medical record is reviewed Reevaluation #2: 05/21/21 03:13 Patient has mildly improved pain control here in the ER, still in pain with shortness of breath - Consultations Consultation #1: Spoke with Dr. Sue will admit this patient Medical Decision Making - Medical Decision Making 66 male DF for evaluation of acute on chronic pain complicated with COPD and breathing and cough and congestion. Patient does not feel well weakness diaphor etic short of breath and vomits. Pain is severe - Lab Data Result diagrams: 05/21/21 01:53 05/21/21 01:53 Lab Results 05/21/21 05/21/21 05/21/21 Range/Units 01:53 01:53 01:53 WBC 9.1 (3.8-10.6) k/uL RBC 4.87 (4.30-5.90) m/uL Hgb 14.4 (13.0-17.5) gm/dL Hct 44.4 (39.0-53.0) % MCV 91.2 (80.0-100.0) fL MCH 29.6 (25.0-35.0) pg MCHC 32.5 (31.0-37.0) g/dL RDW 14.1 (11.5-15.5) % Plt Count 232 (150-450) k/uL MPV 7.4 Neutrophils % 77 % Lymphocytes % 14 % Monocytes % 5 % Eosinophils % 0 % Basophils % 0 % Neutrophils # 7.1 (1.3-7.7) k/uL Lymphocytes # 1.3 (1.0-4.8) k/uL Monocytes # 0.5 (0-1.0) k/uL Eosinophils # 0.0 (0-0.7) k/uL Basophils # 0.0 (0-0.2) k/uL PT 9.6 (9.0-12.0) sec INR 0.9 (<1.2) APTT 22.1 (22.0-30.0) sec Sodium (137-145) mmol/L Potassium (3.5-5.1) mmol/L Chloride (98-107) mmol/L Carbon Dioxide (22-30) mmol/L Anion Gap mmol/L BUN (9-20) mg/dL Creatinine (0.66-1.25) mg/dL Est GFR (CKD-EPI)AfAm (>60 ml/min/1.73 sqM) Est GFR (CKD-EPI)NonAf (>60 ml/min/1.73 sqM) Glucose (74-99) mg/dL Plasma Lactic Acid Jeff (0.7-2.0) mmol/L Calcium (8.4-10.2) mg/dL Phosphorus (2.5-4.5) mg/dL Magnesium (1.6-2.3) mg/dL Total Bilirubin (0.2-1.3) mg/dL AST (17-59) U/L ALT (4-49) U/L Alkaline Phosphatase (38-126) U/L Creatine Kinase (55-170) U/L Troponin I (0.000-0.034) ng/mL Total Protein (6.3-8.2) g/dL Albumin (3.5-5.0) g/dL Urine Color Yellow Urine Appearance Clear (Clear) Urine pH 5.5 (5.0-8.0) Ur Specific [place] 1.028 (1.001-1.035) Urine Protein Trace H (Negative) Urine Glucose (UA) Negative (Negative) Urine Ketones Negative (Negative) Urine Blood Negative (Negative) Urine Nitrite Negative (Negative) Urine Bilirubin Negative (Negative) Urine Urobilinogen <2.0 (<2.0) mg/dL Ur Leukocyte Esterase Negative (Negative) 05/21/21 05/21/21 05/21/21 Range/Units 01:53 01:53 01:53 WBC (3.8-10.6) k/uL RBC (4.30-5.90) m/uL Hgb (13.0-17.5) gm/dL Hct (39.0-53.0) % MCV (80.0-100.0) fL MCH (25.0-35.0) pg MCHC (31.0-37.0) g/dL RDW (11.5-15.5) % Plt Count (150-450) k/uL MPV Neutrophils % % Lymphocytes % % Monocytes % % Eosinophils % % Basophils % % Neutrophils # (1.3-7.7) k/uL Lymphocytes # (1.0-4.8) k/uL Monocytes # (0-1.0) k/uL Eosinophils # (0-0.7) k/uL Basophils # (0-0.2) k/uL PT (9.0-12.0) sec INR (<1.2) APTT (22.0-30.0) sec Sodium 139 (137-145) mmol/L Potassium 4.4 (3.5-5.1) mmol/L Chloride 101 (98-107) mmol/L Carbon Dioxide 31 H (22-30) mmol/L Anion Gap 7 mmol/L BUN 15 (9-20) mg/dL Creatinine 0.63 L (0.66-1.25) mg/dL Est GFR (CKD-EPI)AfAm >90 (>60 ml/min/1.73 sqM) Est GFR (CKD-EPI)NonAf >90 (>60 ml/min/1.73 sqM) Glucose 112 H (74-99) mg/dL Plasma Lactic Acid Jeff 1.0 (0.7-2.0) mmol/L Calcium 9.7 (8.4-10.2) mg/dL Phosphorus 4.2 (2.5-4.5) mg/dL Magnesium 2.0 (1.6-2.3) mg/dL Total Bilirubin 0.2 (0.2-1.3) mg/dL AST 19 (17-59) U/L ALT 14 (4-49) U/L Alkaline Phosphatase 75 (38-126) U/L Creatine Kinase 68 (55-170) U/L Troponin I <0.012 (0.000-0.034) ng/mL Total Protein 7.0 (6.3-8.2) g/dL Albumin 4.2 (3.5-5.0) g/dL Urine Color Urine Appearance (Clear) Urine pH (5.0-8.0) Ur Specific [place] (1.001-1.035) Urine Protein (Negative) Urine Glucose (UA) (Negative) Urine Ketones (Negative) Urine Blood (Negative) Urine Nitrite (Negative) Urine Bilirubin (Negative) Urine Urobilinogen (<2.0) mg/dL Ur Leukocyte Esterase (Negative) - EKG Data -: EKG Interpreted by Me (EKG shows sinus rhythm of 90. 128 QRS 82 QTC 436) - Radiology Data Radiology results: report reviewed (This chest x-ray negative for acute dis ease), image reviewed Disposition Clinical Impression: Acute exacerbation of chronic obstructive pulmonary disease, Acute bronchitis, Acute exacerbation of chronic obstructive pulmonary disease (COPD), Chronic pain, Intractable pain Disposition: ADMITTED IP TO THIS HOSP Condition: Fair Is patient prescribed a controlled substance at d/c from ED?: No Referrals: Evelyn Chow MD [Primary Care Provider] - 1-2 days
[2021-05-21] MEDS ORDERED: HYDROmorphone 1 MG/ML 1 ML SYRINGE IVP STA (01:38)
[2021-05-21] MEDS ORDERED: LORazepam 2 MG/ML INJ IV STA (01:38)
[2021-05-21] MEDS ORDERED: HYDROmorphone 1 MG/ML 1 ML SYRINGE IVP PRN (01:38)
[2021-05-21] MEDS ORDERED: ONDANSETRON 4 MG/2 ML VIAL IVP STA (01:38)
[2021-05-21] MEDS ORDERED: LORazepam 2 MG/ML INJ IV PRN (01:38)
[2021-05-21] MEDS ORDERED: SODIUM CHLORIDE 0.9% 1,000 ML IV STA (01:38)
--- NOTE | 2021-05-21 02:09 | XR ---
EXAMINATION TYPE: XR chest 2V DATE OF EXAM: 05/21/2021 COMPARISON: 05/04/2017 HISTORY: Weakness TECHNIQUE: 2 views FINDINGS: There is pulmonary hyperinflation with flattening of the diaphragm. Heart size is normal. T rachea is midline. There is cervical spine fusion surgery. There are no hilar masses. IMPRESSION: COPD. No active cardiopulmonary disease. No change.
[2021-05-21 02:21] LABS: Basophils % (A) 0 %; Eosinophils % (A) 0 %; HCT 44.4 % (39.0-53.0); HGB 14.4 gm/dL (13.0-17.5); Lymphocytes # (A) 1.3 k/uL (1.0-4.8); Lymphocytes % (A) 14 %; MCH 29.6 pg (25.0-35.0); MCHC 32.5 g/dL (31.0-37.0); MCV 91.2 fL (80.0-100.0); Mean Platelet Volume 7.4; Monocytes # (A) 0.5 k/uL (0-1.0); Monocytes % (A) 5 %; Neutrophils # (A) 7.1 k/uL (1.3-7.7); Neutrophils % (A) 77 %; Platelet Count 232 k/uL (150-450); RBC 4.87 m/uL (4.30-5.90); RDW 14.1 % (11.5-15.5); WBC 9.1 k/uL (3.8-10.6)
[2021-05-21 02:24] LABS: ALT 14 U/L (4-49); AST 19 U/L (17-59); African American GFR (CKD) >90 (>60 ml/min/1.73 sqM); Albumin 4.2 g/dL (3.5-5.0); Alkaline Phosphatase 75 U/L (38-126); Anion Gap 7 mmol/L; Blood Urea Nitrogen 15 mg/dL (9-20); Calcium 9.7 mg/dL (8.4-10.2); Carbon Dioxide 31 mmol/L (22-30); Chloride 101 mmol/L (98-107); Creatine Kinase 68 U/L (55-170); Glucose 112 mg/dL (74-99); Non-African American GFR(CKD) >90 (>60 ml/min/1.73 sqM); Phosphorus 4.2 mg/dL (2.5-4.5); Potassium 4.4 mmol/L (3.5-5.1); Sodium 139 mmol/L (137-145); Total Bilirubin 0.2 mg/dL (0.2-1.3)
[2021-05-21 02:28] LABS: INR 0.9 (<1.2); Partial Thromboplastin Time 22.1 sec (22.0-30.0); Prothrombin Time 9.6 sec (9.0-12.0)
[2021-05-21 03:03] LABS: Appearance,Urine Clear (Clear); Bilirubin,Urine Negative (Negative); Blood,Urine Negative (Negative); Color,Urine Yellow; Glucose,Urine (UA) Negative (Negative); Ketones,Urine Negative (Negative); Leukocyte Esterase,Urine Negative (Negative); Nitrite,Urine Negative (Negative); PH, Urine 5.5 (5.0-8.0); Protein,Urine Trace (Negative); Specific Gravity,Urine 1.028 (1.001-1.035); Urobilinogen,Urine <2.0 mg/dL (<2.0)
[2021-05-21] MEDS ORDERED: DEXAMETHASONE SOD PHOSPHATE 10 MG/ML 1 ML VIAL IV STA (03:09)
[2021-05-21] MEDS ORDERED: IPRATROPIUM-ALBUTEROL 3 ML NEB INHALATION STA (03:09)
[2021-05-21] MEDS ORDERED: IPRATROPIUM-ALBUTEROL 3 ML NEB INHALATION PRN (03:16)
[2021-05-21] MEDS ORDERED: SODIUM CHLORIDE 0.9% 1,000 ML IV SCH (03:30)
--- NOTE | 2021-05-21 04:44 | P.HPIM ---
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 The patient reports that over the past 1 week, he has had gradually worsening shortness of breath and wheezing. The patient continues to smoke a few cigarettes a day and has a long-standing history of tobacco abuse. He also reports that he last had his pain pump adjusted on April 23 by his pain management physician. He reports however that his pain over the past 1 week also has not been adequately controlled with the pump along with his breakthrough oral Norcos. He denied chest pain, nausea, vomiting. Denied fever, chills. Denied abdominal pain, diarrhea, headaches, weakness, numbness, tingling. In the emergency room and EKG revealed normal sinus rhythm at 90 bpm. Chest x-ray was unremarkable. Laboratory evaluation was reviewed and was remarkable for CO2 of 31. Review of systems: Pertinent positives and negatives as discussed in HPI, a complete review of systems was performed and all other systems are negative. Physical examination: General: Chronically ill-appearing, no distress, appears at stated age, normal weight Derm: no unusual rashes/lesions no unusual ecchymoses, warm, dry Head: atraumatic, normocephalic, symmetric Eyes: EOMI, no lid lag, anicteric sclera, pupils equal round reactive to light ENT: Nose and ears atraumatic, no thrush, no pharyngeal erythema Neck: No thyromegaly, no cervical lymphadenopathy, trachea midline, supple Mouth: no lip lesion, mucus membranes moist Cardiovascular: S1S2 reg, no murmur, positive posterior tibial pulse bilateral, no edema, capillary refill less than 2 seconds Lungs: Poor air entry bilaterally with bilateral wheezing and scattered coarse breath sounds, no accessory muscle use Abdominal: soft, nontender to palpation, no guarding, no appreciable organ omegaly, normal bowel sounds, left lower quadrant subcutaneous pain pump noted Ext: no gross muscle atrophy, muscle strength 3+ out of 5 in all 4 extremities grossly, no contractures, Neuro: CN II-XI grossly intact, light touch intact all 4 extremities, finger to nose within normal limits, Psych: Alert, oriented, appropriate affect Assessment/plan Acute COPD exacerbation -DuoNeb, Solu-Medrol -Pulmonary consult Long-standing spinal DJD with uncontrolled pain -Continue with pain control as needed Chronic conditions: Hypertension, hyperlipidemia -Continue with home meds DVT prophylaxis -Heparin subcu The patient is admitted with an anticipated less than 2 midnight stay for evaluation of COPD exac CODE STATUS: Full Code Discussed with: Patient, Anticipated discharge date: 05/[address]: Home A total of 40 minutes was spent on the care of this complex patient more than 50% of the time was spent in counseling and care coordination. Past Medical History Past Medical History: COPD, Hyperlipidemia, Hypertension, Musculoskeletal Disorder, Sleep Apnea/CPAP/BIPAP Additional Past Medical History / Comment(s): SLEEP APNEA WITH C-PAP.,OXYGEN AT 2-4 L. PRN AND USES WITH C-PAP ALSO., PAST HX OF HTN., SCOLIOSIS, DDD., CHRONIC NECK AND BACK PAIN- RECENT TRIAL FOR PAIN PUMP., HX OF COLON POLYPS ., HX OF BLEEDING ULCER., HX OF FX C-7 (SURGERY)., ENVIRONMENTAL ALLERGIES., STATES WEAK SPOT IN ESOPHAGUS AND FOOD GETS STUCK., HX ADRENAL GLAND FAILURE DURING SURGERY ON BACK., PT HAD SWALLOW STUDY DONE AT [facility] AND WILL BE BRINGING CD. History of Any Multi-Drug Resistant Organisms: None Reported Past Surgical History: Back Surgery, Tonsillectomy Additional Past Surgical History / Comment(s): Hx of Fx C-7 -cervical & lumbar fusion., epidural injections & pain clinic procedures Past Anesthesia/Blood Transfusion Reactions: Unable to Obtain, Previous Problems w/ Anesthesia Additional Past Anesthesia/Blood Transfusion Reaction / Comment(s): adrenal gland failure during back surgery. PT CONCERNED ABOUT WEAKNESS IN ESOPHAGUS . PT ADOPTED- UNKNOWN FAMILY HX. Past Psychological History: Anxiety, Depression Smoking Status: Heavy tobacco smoker Past Alcohol Use History: None Reported Past Drug Use History: None Reported - Past Family History Father Family Medical History: No Reported History Additional Family Medical History / Comment(s): Adopted Mother Family Medical History: No Reported History Additional Family Medical History / Comment(s): adopted Medications and Allergies Home Medications Medication Instructions Recorded Confirmed Type DULoxetine HCL [Cymbalta] 30 mg PO HS 11/02/16 06/18/18 History Lovastatin [Mevacor] 40 mg PO HS 11/02/16 06/18/18 History Pantoprazole Sodium [Protonix] 40 mg PO QAM 11/02/16 06/18/18 History Fluticasone/Salmeterol [Advair 1 puff INHALATION RT-BID 01/09/17 06/18/18 History 250-50 Diskus] Albuterol Sulfate [Proair Hfa] 2 puff INHALATION RT-QID PRN 01/25/17 06/18/18 History Magnesium 400 mg PO QAM 02/20/17 06/18/18 History Hydrocodone/Acetaminophen [[place] 1 tab PO QID PRN 03/20/18 06/18/18 History 10-325] Ipratropium-Albuterol Nebulize 3 ml INHALATION RT-QID PRN 03/20/18 06/18/18 History [Duoneb 0.5 mg-3 mg/3 ml Soln] ARIPiprazole [Abilify] 5 mg PO QAM 06/14/18 06/18/18 History Loratadine [Claritin] 10 mg PO QAM 06/14/18 06/18/18 History Vitamin E (Dl,Tocopheryl Acet) 800 unit PO DAILY 06/14/18 06/18/18 History [Vitamin E] Allergies Allergy/AdvReac Type Severity Reaction Status Date / Time Iodinated Contrast Media Allergy Dyspnea Verified 06/18/18 13:30 [Iodinated Contrast Media - Oral and] Physical Exam Vitals: Vital Signs Temp Pulse Resp BP Pulse Ox 05/21/21 03:56 87 05/21/21 03:45 97.7 F 84 20 122/88 97 05/21/21 03:00 97.8 F 86 20 126/90 97 05/21/21 01:08 99 20 143/106 96 Intake and Output 05/20/21 05/20/21 05/21/21 14:59 22:59 06:59 Other: Weight 78.925 kg Results CBC & Chem 7: 05/21/21 01:53 05/21/21 01:53 Labs: Abnormal Lab Results - Last 24 Hours (Table) 05/21/21 05/21/21 Range/Units 01:53 01:53 Carbon Dioxide 31 H (22-30) mmol/L Creatinine 0.63 L (0.66-1.25) mg/dL Glucose 112 H (74-99) mg/dL Urine Protein Trace H (Negative)
[2021-05-21] MEDS: methylPREDNISolone SOD SUCCI 125 MG/2 ML VIAL IV SCH ×4 (06:07→23:55)
[2021-05-21] MEDS ORDERED: HYDROcodone/APAP 5-325MG 1 EACH TAB PO PRN (07:59)
[2021-05-21] MEDS ORDERED: ALBUTEROL NEBULIZED 2.5 MG/3 ML INHALATION SCH (08:00)
[2021-05-21] MEDS ORDERED: CYCLOBENZAPRINE 5 MG TAB PO PRN (11:18)
[2021-05-21] MEDS: ENOXAPARIN 40 MG/0.4 ML SYRINGE SQ SCH (11:19)
[2021-05-21] MEDS ORDERED: MORPHINE MISCELLANE SCH (11:30)
[2021-05-21] MEDS: IPRATROPIUM-ALBUTEROL 3 ML NEB INHALATION SCH ×3 (11:36→20:27)
--- NOTE | 2021-05-21 12:05 | P.PN ---
Subjective Progress Note Date: 05/21/21 Patient is feeling better today. He is still having wheezing but reports feeling a lot better compared to yesterday. No acute events overnight. Patient admits that he continues to smoke half pack per day on a regular basis. Objective - Vital Signs Vital signs: Vital Signs Temp 97.6 F 05/21/21 07:00 Pulse 86 05/21/21 11:45 Resp 20 05/21/21 07:00 BP 133/87 05/21/21 07:00 Pulse Ox 91 L 05/21/21 07:00 Intake & Output 05/20/21 05/21/21 05/21/21 18:59 06:59 18:59 Intake Total 300 Output Total 220 Balance 300 -220 Weight 78.925 kg Intake: IV 300 Sodium Chloride 0.9% 1, 300 000 ml @ 100 mls/hr IV . Q10H BERYL Rx#:[id number] Output: Urine 220 Other: # Voids 1 - Exam General: The patient is awake and alert, in no distress Eye: there is normal conjunctiva bilaterally. Neck: The neck is supple, there is no JVD. Cardiovascular: Normal S1-S2, no S3-S4, no murmurs. Respiratory: Lungs with end expiratory wheezing all over the chest Gastrointestinal: Abdomen is soft, nontender Musculoskeletal: There is no pedal edema. Neurological:. Speech is normal. Skin: Skin is warm and dry - Labs CBC & Chem 7: 05/21/21 01:53 05/21/21 01:53 Labs: Abnormal Lab Results - Last 24 Hours (Table) 05/21/21 05/21/21 Range/Units 01:53 01:53 Carbon Dioxide 31 H (22-30) mmol/L Creatinine 0.63 L (0.66-1.25) mg/dL Glucose 112 H (74-99) mg/dL Urine Protein Trace H (Negative) Assessment and Plan Assessment: This is a 66-year-old male with past medical history noted below who presented to the emergency room with worsening shortness of breath. Patient was evaluated in the ER and admitted to the hospital for further management of his medical problems noted below. 1. Acute COPD exacerbation, started on IV Solu-Medrol. Continue duo nebs every 6 hours scheduled and every 4 hours as needed. 2. Acute on chronic hypoxic respiratory failure on 2 L of oxygen at home 3. Tobacco abuse, counseled extensively to quit. Nicotine patch ordered 4. History of chronic low back pain maintained on morphine pump 5. Chronic medical problems, hypertension, hyperlipidemia, underlying depression 6. DVT prophylaxis with subcu Lovenox Today, I reviewed his medication list and lab work results. Chest x-ray showed no acute findings. We will continue current management. Anticipate discharge home in the morning.
[2021-05-21] MEDS: LORATADINE 10 MG TAB PO SCH (12:36)
[2021-05-21] MEDS: ATORVASTATIN 40 MG TAB PO SCH (12:37)
[2021-05-21] MEDS: VITAMIN E (DL,TOCOPHERYL ACET) 400 UNIT (180 MG) CAP PO SCH (12:37)
[2021-05-21] MEDS: PANTOPRAZOLE 40 MG TABLET PO SCH (12:37)
[2021-05-21] MEDS: NICOTINE 7MG/24HR PATCH TRANSDERM SCH (12:37)
[2021-05-21] MEDS: MORPHINE SQ SCH (12:42)
[2021-05-21] MEDS: SYMBICORT 80-4.5 MCG INHALER INHALATION SCH (20:34)
[2021-05-21] MEDS ORDERED: DULoxetine HCL 60 MG CAPSULE.DR PO SCH (21:00)
[2021-05-22] MEDS: methylPREDNISolone SOD SUCCI 125 MG/2 ML VIAL IV SCH (05:35)
[2021-05-22] MEDS: SYMBICORT 80-4.5 MCG INHALER INHALATION SCH (07:34)
[2021-05-22] MEDS: IPRATROPIUM-ALBUTEROL 3 ML NEB INHALATION SCH ×2 (07:34→11:26)
[2021-05-22] MEDS: PANTOPRAZOLE 40 MG TABLET PO SCH (07:44)
[2021-05-22] MEDS: LORATADINE 10 MG TAB PO SCH (07:44)
[2021-05-22] MEDS: ENOXAPARIN 40 MG/0.4 ML SYRINGE SQ SCH (07:45)
[2021-05-22] MEDS: VITAMIN E (DL,TOCOPHERYL ACET) 400 UNIT (180 MG) CAP PO SCH (07:45)
[2021-05-22] MEDS: ATORVASTATIN 40 MG TAB PO SCH (07:45)
[2021-05-22] MEDS: NICOTINE 7MG/24HR PATCH TRANSDERM SCH (07:45)
[2021-05-22 07:51] VITALS: BP 133/87; TEMP 97.7
[2021-05-22 08:52] VITALS: RESP 18
--- NOTE | 2021-05-22 11:32 | P.DS ---
Providers Date of admission: 05/21/21 03:16 Expected date of discharge: 05/22/21 Attending physician: Kat Sue MD Consults: This is a 66-year-old male with past medical history noted below who presented to the emergency room with worsening shortness of breath. Patient was evaluated in the ER and admitted to the hospital for further management of his medical problems noted below. 1. Acute COPD exacerbation, started on IV Solu-Medrol and duo nebs every 6 ho urs scheduled and every 4 hours as needed. 2. Acute on chronic hypoxic respiratory failure on 2 L of oxygen at home 3. Tobacco abuse, counseled extensively to quit. Nicotine patch ordered 4. History of chronic low back pain maintained on morphine pump 5. Chronic medical problems, hypertension, hyperlipidemia, underlying depression Patient was seen and evaluated by me on the day of discharge. He continues to have some mild end expiratory wheezing. He was able to get up and ambulate in his room with no difficulty. He denies any shortness of breath more than usual. He would be discharged home in a stable condition. 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 He was offered a prescription for Spiriva but told me that he tried it in the past with minimal improvement. He was counseled extensively not to smoke any cigarettes. He will be provided with a nicotine patch prescription. Also a tapered course prednisone. He was advised to use his nebulizer albuterol every 4 hours at home for the next 3 days. Primary care physician: Evelyn Chow MD Patient Condition at Discharge: Fair Plan - Discharge Summary Discharge Rx Participant: No New Discharge Prescriptions: New Nicotine 7Mg/24Hr Patch [Habitrol] 1 patch TRANSDERM DAILY #30 patch predniSONE 0 mg PO DIRECTED #30 tab Continue Pantoprazole Sodium [Protonix] 40 mg PO QAM Albuterol Sulfate [Proair Hfa] 2 puff INHALATION RT-QID PRN PRN Reason: Shortness Of Breath Magnesium 400 mg PO QAM Hydrocodone/Acetaminophen [Mead 10-325] 1 tab PO Q12H PRN PRN Reason: Pain Ipratropium-Albuterol Nebulize [Duoneb 0.5 mg-3 mg/3 ml Soln] 3 ml INHALATION RT-QID PRN PRN Reason: Shortness Of Breath Vitamin E (Dl,Tocopheryl Acet) [Vitamin E] 800 unit PO DAILY DULoxetine HCL [Cymbalta] 60 mg PO HS Cyclobenzaprine [Flexeril] 5 mg PO TID PRN PRN Reason: Pain Cetirizine HCl [Zyrtec] 10 mg PO DAILY Atorvastatin Calcium [Lipitor] 40 mg PO DAILY Morphine Pain Pump 0.01 unit SQ-PUMP CONTINUOUS Fluticasone/Umeclidin/Vilanter [Trelegy Ellipta 100-62.5-25] 1 puff INHALATION RT-DAILY Cholecalciferol [Vitamin D3 (25 Mcg = 1000 Iu)] 25 mcg PO DAILY Discontinued methylPREDNISolone [Medrol Dose Pack] See Taper PO DAILY Discharge Medication List Pantoprazole Sodium [Protonix] 40 mg PO QAM 11/02/16 [History] Albuterol Sulfate [Proair Hfa] 2 puff INHALATION RT-QID PRN 01/25/17 [History] Magnesium 400 mg PO QAM 02/20/17 [History] Hydrocodone/Acetaminophen [Mead 10-325] 1 tab PO Q12H PRN 03/20/18 [History] Ipratropium-Albuterol Nebulize [Duoneb 0.5 mg-3 mg/3 ml Soln] 3 ml INHALATION RT-QID PRN 03/20/18 [History] Vitamin E (Dl,Tocopheryl Acet) [Vitamin E] 800 unit PO DAILY 06/14/18 [History] Atorvastatin Calcium [Lipitor] 40 mg PO DAILY 05/21/21 [History] Cetirizine HCl [Zyrtec] 10 mg PO DAILY 05/21/21 [History] Cholecalciferol [Vitamin D3 (25 Mcg = 1000 Iu)] 25 mcg PO DAILY 05/21/21 [History] Cyclobenzaprine [Flexeril] 5 mg PO TID PRN 05/21/21 [History] DULoxetine HCL [Cymbalta] 60 mg PO HS 05/21/21 [History] Fluticasone/Umeclidin/Vilanter [Trelegy Ellipta 100-62.5-25] 1 puff INHALATION RT-DAILY 05/21/21 [History] Morphine Pain Pump 0.01 unit SQ-PUMP CONTINUOUS 05/21/21 [History] Nicotine 7Mg/24Hr Patch [Habitrol] 1 patch TRANSDERM DAILY #30 patch 07/11/21 [Rx] predniSONE 0 mg PO DIRECTED #30 tab 05/22/21 [Rx] Follow up Appointment(s)/Referral(s): Evelyn Chow MD [Primary Care Provider] - 1-2 days Discharge Disposition: HOME SELF-CARE
[2021-05-22 11:42] VITALS: PULSE 82
[2021-05-22] MEDS: MORPHINE SQ SCH (13:08)
== END 2021-05-22 13:14 | disposition home or self-care (01) ==
LOC: EC 00:23 → 6NMEDSUR 03:16
PROVIDERS: ADMIT Internal Medicine; ATTEND Internal Medicine
DX: J44.1 Chronic obstructive pulmonary disease with (acute) exacerbation (principal); J96.21 Acute and chronic respiratory failure with hypoxia; J44.0 Chronic obstructive pulmonary disease with (acute) lower respiratory infection; J20.9 Acute bronchitis, unspecified; I10 Essential (primary) hypertension; E78.5 Hyperlipidemia, unspecified; G47.30 Sleep apnea, unspecified; M41.9 Scoliosis, unspecified; G89.29 Other chronic pain; M54.2 Cervicalgia; M54.5 Low back pain; K22.2 Esophageal obstruction; M19.90 Unspecified osteoarthritis, unspecified site; M47.819 Spondylosis without myelopathy or radiculopathy, site unspecified; F32.9 Major depressive disorder, single episode, unspecified; F41.9 Anxiety disorder, unspecified; F17.210 Nicotine dependence, cigarettes, uncomplicated; Z79.891 Long term (current) use of opiate analgesic; Z79.51 Long term (current) use of inhaled steroids; Z79.899 Other long term (current) drug therapy; Z91.041 Radiographic dye allergy status; Z91.048 Other nonmedicinal substance allergy status; Z87.19 Personal history of other diseases of the digestive system; Z87.81 Personal history of (healed) traumatic fracture; Z98.1 Arthrodesis status; Z97.8 Presence of other specified devices; Z98.890 Other specified postprocedural states
CPT/HCPCS: 96376 ×2; 96361 ×2; 96372 ×3; 96375 ×2; 96374; 99285; 36415; 94640 ×3; 94760; 93005; 80053; 82550; 83605; 83735; 84100; 84484; 85025; 85610; 85730; 81003; 71046; G0378 ×2; S4990 ×2; J2060; J1100; J2930 ×2; J2405; J1650 ×2; J1170